=== PATIENT | female | born 1990 | race Caucasian/White ===

== ENCOUNTER 2023-06-09 14:36 | Outpatient (CLI) | payer BC, SELFPAY | END 2023-06-09 14:37 | disposition home or self-care (01) | LOC: NFLDREF 06-14 06:44 | PROVIDERS: Visit Provider Physician Assistant | DX: Z34.83 Encounter for supervision of other normal pregnancy, third trimester (principal) | CPT/HCPCS: 86592 ==

== ENCOUNTER 2023-06-13 17:45 | Outpatient (CLI) | payer BC, SELFPAY ==
[2023-06-13 17:55] VITALS: BP 109/64; PULSE 96
[2023-06-13 17:56] VITALS: PULSE 98; O2SAT 99
[2023-06-13 18:01] VITALS: PULSE 96; O2SAT 98
[2023-06-13 18:10] VITALS: RESP 16; TEMP 36.9
[2023-06-13 18:17] LABS: Appearance Urine Clear (Clear); Bilirubin Urine Negative (Negative); Blood Urine Negative (Negative); Color Urine Yellow (Yellow); Glucose Urine Negative (Negative); Ketones Urine Negative (Negative); Leukocyte Esterase Urine Trace (Negative); Nitrite Urine Negative (Negative); Protein Urine Negative (Negative); Specific Gravity Urine 1.015 (1.000-1.030); Urobilinogen Urine 0.2 (0.2-1.0)
[2023-06-13 18:39] LABS: Bacteria Urine Few; RBC Urine 0-2 (0-2); Squamous Epithelial Cell Urine Few (None-Few); WBC Urine 0-2 (0-5)
[2023-06-13 18:49] LABS: Clue Cells No Clue Cells Seen (None Seen); Trichomonas No Trichomonas Seen (None Seen); Yeast No Yeast Seen (None Seen)
[2023-06-13 19:19] LABS: Fetal Fibronectin* Negative (Negative)
--- NOTE | 2023-06-13 20:06 | PC.OBNST ---
NST Note NST Note Start: 06/13/23 17:49 Freq: ONCE Status: Active Protocol: Document 06/13/23 20:04 MIREILLE (Rec: 06/13/23 20:06 MIREILLE [id number]) NST Note 5 Para (# of births) 1 EDC 08/29/23 Gestational Age In Weeks & Days 29 Weeks & 0 Days Patient Presented with Complaint(s) of Contractions/cramping Reactive Yes Appropriate for Gestational Age Yes RAMESH Harley RN Date 06/13/23 Reactive Yes Appropriate for Gestational Age Yes RAMESH [place], RNC Date 06/13/23 OB NST charge Yes Complete NST Note via Write Note Yes The provider's electronic signature indicates the NST is reactive/appropriate for gestational age. *Note to provider: If an addendum is required, open the patient's chart and click on the note under the Nurse/Allied Health tab.
--- NOTE | 2023-06-13 20:20 | P.OBO_ITS ---
OB Outpatient HPI History of Present Illness History of Present Illness: 32 year old at 29 weeks gestation presents with chief complaint of contractions. She feels these more when active. She denies any loss of fluid and reports a little vaginal discharge. OB Problem List 1. AMA Carrier screening and MaterniT 21: neg Level 2 ultrasound: See below. 2. 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 History of Desires repeat, does not desire permanent sterilization 4. Marginal cord insertion Follow-up growth 3rd trimester: expect this will be done with repeat US at 34 weeks at [place], see below. 5. On follow-up anatomy ultrasound/additional cardiac findings noted : Foramen ovale flap appears aneurysmal without evidence of arrhythmia. Also ventricular size appears symmetric therefore is unlikely that there is significant flow obstruction from the aneurysmal foramen ovale. Considering marginal cord insertion and cardiac findings : Recommend follow-up ultrasound in the 3rd trimester for growth, reassessment of cardiac anatomy and foramen ovale. 05/11/23: Patient reports they did offer a echo and she would like to proceed. 06/03/23: s/p MFM consult, no echo recommended. Plan repeat US at 34 weeks, ordered at [facility]. 6. Asthma, mild intermittent. Exercise and URI induced. 7. GERD Omeprazole 20 mg 8. History of macrosomia,9 lb 7 oz Meds Home Medications and Allergies Home Medications Medication Instructions Recorded Confirmed Type calcium carbonate 200 mg calcium 200 mg PO BID 05/11/23 06/13/23 History (500 mg) chewable tablet (Tums) docosahexaenoic acid 200 mg 200 mg PO DAILY 05/11/23 06/13/23 History capsule ( DHA) omeprazole 20 mg capsule,delayed 20 mg PO QDAY 05/11/23 06/13/23 History release vits 75-iron 28 mg-folic 1 pkg PO DAILY 05/11/23 06/13/23 History acid 800 mcg-omega-3 oral combo pack (One A Day Women's DHA) Allergies Allergy/AdvReac Type Severity Reaction Status Date / Time No Known Drug Allergies Allergy Verified 06/13/23 18:48 [facility] Surgical History History of ?Z98.891 - History of uterine scar from previous surgery (ICD-10) Family History Sister Breast cancer, Onset Age: 29 Social History Narrative: 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 Marital status: . Gnosticist/cultural needs: no. Chemical or radiation exposure: no. Pre- tobacco use: no. Pre- alcohol use: no. Current tobacco use: no. Current alcohol use: no. Recreational drug use: no. Dietary restrictions: no. Blood transfusion acceptable in an emergency: yes. PSYCHOSOCIAL HISTORY: History of depression or currently depressed: no. Current or past physical, emotional, or sexual mistreatment: no. Problems that will make it hard to make it to appointments: no. What is your current living situation?: I presently have a place to live Problems where you live: no known problems In the past 12 months, utilities in danger of being shut off: no In past 12 months, lack of transportation kept you from medical appts, meetings, work, or getting things needed for daily living: no In the past 12 mos, have been you worried that your food would run out before you had money to buy more?: never true In the past 12 mos, the food you bought just didn't last and you didn't have money to buy more?: never true Smoking Status: Never smoker How often does anyone, including family, friends and others, physically hurt you : never How often does anyone, including family, friends and others, insult or talk down to you: never How often does anyone, including family, friends and others, threaten you with harm: never How often does anyone, including family, friends and others, scream or curse at you: never Little interest or pleasure in doing things: not at all Feeling down, depressed, or hopeless: not at all History History 5 Elective abortions Para 1 Spontaneous abortions 3 Hx # Term Pregnancies Ectopic pregnancies Hx # Pregnancies Multiple births Number of Living Children 1 Past Pregnancies Del. Date GA/Weeks Outcome Route wt Inf Gender Labor Lgth Anesthesia Location Provider Compli 12/14/18 8 spontaneous 03/12/21 40 live - full term low transverse 9 lb 7.043 oz Female 11h 15m epidural Al[facility] 11/17/21 5 spontaneous 10/14/22 11 spontaneous OB - H&P: Exam Physical Exam Vital signs: Temp Pulse Resp BP Pulse Ox 98.4 F 96 16 109/64 98 06/13/23 18:10 06/13/23 17:55 06/13/23 18:10 06/13/23 17:55 06/13/23 18:01 Narrative: Per RN, cervix closed and long tracing: Baseline 135 / accelerations to 180 / no decelerations / moderate variability Reactive and reassuring for gestational age; there are no contractions noted. Labs Labs Laboratory Tests 06/13/23 06/13/23 Range/Units 18:31 17:49 Urine Color Yellow (Yellow) Urine Appearance Clear (Clear) Urine pH 7.0 (5.0-8.5) Ur Specific [place] 1.015 (1.000-1.030) Urine Protein Negative (Negative) Urine Glucose (UA) Negative (Negative) Urine Ketones Negative (Negative) Urine Blood Negative (Negative) Urine Nitrite Negative (Negative) Urine Bilirubin Negative (Negative) Urine Urobilinogen 0.2 (0.2-1.0) Ur Leukocyte Esterase Trace A (Negative) Urine RBC 0-2 (0-2) Urine WBC 0-2 (0-5) Ur Squamous Epith Cells Few (None-Few) Urine Bacteria Few A (None) Vaginal Trichomonas No Trichomonas Seen (None Seen) Vaginal Yeast No Yeast Seen (None Seen) Vaginal Clue Cells No Clue Cells Seen (None Seen) Fibronectin Negative (Negative) Assessment and Plan Assessment and plan (1) contractions: Status: Acute Plan Contractions resolved prior to arrival on Center. Cervix long and closed. FFN negative. Not consistent with labor. Reassuring status. Will follow up on results of urine culture. Otherwise, discharge to home with plan to follow up in clinic for routine visit.
== END 2023-06-13 20:00 | disposition home or self-care (01) ==
LOC: OB OUT 17:46 → OB 17:47
PROVIDERS: Visit Provider Obstetrics & Gynecology
DX: O47.03 False labor before 37 completed weeks of gestation, third trimester (principal); Z3A.29 29 weeks gestation of pregnancy
CPT/HCPCS: 59025; 81001; 81003; 84112; 87086; 87210; G0463

== ENCOUNTER 2023-08-06 14:30 | Outpatient (CLI) | payer BC, SELFPAY ==
[2023-08-07 13:44] LABS: Strep B DNA Probe Negative (Negative)
[2023-08-07 13:54] LABS: Strep B Susceptibility Needed? No
== END 2023-08-06 14:31 | disposition home or self-care (01) ==
LOC: NFLDREF 14:58
PROVIDERS: Visit Provider Obstetrics & Gynecology
DX: O09.523 Supervision of elderly multigravida, third trimester (principal)
CPT/HCPCS: 87081; 87653

== ENCOUNTER 2023-08-12 11:39 | Inpatient (IN) | payer BC, SELFPAY ==
[2023-08-12] VITALS (24 sets, daily range): BP systolic 92–103; BP diastolic 53–76; PULSE 65–87; RESP 16–18; TEMP 36.3–36.9; O2SAT 96–99; BMI 35.1
--- NOTE | 2023-08-12 11:41 | PM.PROC ---
Procedure Note Time Seen by Provider: 13:39 Date Seen: 08/12/23 Date of procedure: 08/12/23 Will [facility] bill your pro fee for this procedure?: Yes Procedure: Preoperative diagnosis: 32-year-old 5 para 1031 at 37 and 4/7 weeks admitted for a repeat low transverse section due to early labor, planned . Postoperative diagnosis: Same Procedure: Repeat low-transverse section. Anesthesia: Spinal Surgeon: Britany Nazario MD Combatant Diver Qualified: Mary Farfan RN FA Quantitative blood loss: 939 mL IVF: 1100 mL UOP: 150 mL clear urine at end of procedure Drain(s): Hook to gravity. Specimen: None Findings: A live female infant was delivered from the direct OA position at 12:55 p.m.. Apgars were 8 at 1 min and 9 at 5 min, respectively. weight: Pending. Nuchal cord(s): No. The placenta was delivered spontaneously and complete at 12:57 p.m.. Amniotic fluid: Clear.. Normal uterus, normal left fallopian tube and left ovary. Other findings: Thick adhesion of the anterior abdominal wall to the right side of the mid uterus. This adhesion prevented visualization of the right ovary and fallopian tube. Procedure: Alba was taken to the OR where spinal anesthetic was found be adequate. A Hook catheter was placed. The patient was then placed in the dorsal supine position with a leftward tilt. She was then prepped and draped in a normal sterile manner. A Pfannenstiel skin incision was made and carried through sharply to the underlying layer of fascia. Fascia was incised in the midline and this incision carried laterally with Mariee scissors. The superior aspect of fascial incision was grasped with Shawnee clamps, tented up, and the rectus muscles dissected off with a combination of blunt and sharp dissection. The inferior aspect of the fascial incision was grasped with Shawnee clamps, tented up and again the rectus muscles dissected off with a combination of blunt and sharp dissection. The rectus muscles were in the midline. The peritoneum was entered bluntly. This opening was extended bluntly. An Sid-O self-retaining retractor was placed. A bladder flap was not created. Uterus was incised in a low transverse manner in the midline. This incision carried laterally with blunt pressure on the inferior and superior aspects of the uterine incision. The amniotic sac was ruptured. The 's body were delivered atraumatically. The was shown to the patient and her support person. The umbilical cord was clamped and cut after 30-60 second delay. The was then handed to waiting pediatric and nursing staff. The placenta was delivered spontaneously. The uterus was cleared of clots and debris. The uterine incision was re-approximated with the uterus in vivo. The 1st layer using 0-Vicryl in a running, locked manner. The 2nd layer using 0-Monocryl in a running, vertical, imbricating layer. Additional sutures needed for hemostasis: Yes, 1 figure of 8 suture using 2-0 chromic. Halle was applied to the uterine incision. Excellent hemostasis was confirmed. The Sid retractor was removed. The rectus muscles were not reapproximated. The rectus muscles were then closely inspected to verify hemostasis. Hemostasis was obtained with bipolar cautery. The fascia was then reapproximated using 0-Maxon loop in a running manner. The subcutaneous tissue was then irrigated with saline and hemostasis obtained with bipolar cautery. The subcutaneous tissue was reapproximated using 3-0 plain gut in a running manner. The skin was reapproximated using 4-0 Monocryl in a running subcuticular manner. Exophin skin adhesive and a Mepiplex dressing were applied. The patient tolerated this procedure well. Sponge, lap and instrument counts were correct x2 active to the procedure. Patient was taken to the recovery area in stable condition. The patient received 2 g of IV Ancef and 500 mg IV azithromycin prior to skin incision.
[2023-08-12 12:13] LABS: Hemoglobin* 11.9 gm/dL (12.0-16.0)
[2023-08-12] MEDS: AZITHROMYCIN 500 MG in 0.9 % SODIUM CHLORIDE 250 ml 250 ML 255 MG IVPB (13:32)
[2023-08-12] MEDS: CEFAZOLIN 2 GM INJ IVP (13:33)
[2023-08-12] MEDS: KETOROLAC 30 MG/ML inj IVP ×2 (13:33→20:43)
--- NOTE | 2023-08-12 14:10 | P.ANES_ITS ---
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
--- NOTE | 2023-08-12 14:11 | W.PM.NB ---
Nerve Block Nerve Block Time Seen by Provider: 13:45 Date Seen: 08/12/23 Type of block requested by surgeon for post-operative analgesia: TAP Side: bilateral Time out performed: Yes Verification of patient name: Yes Verification of date of : Yes Site marking: site marked Name of person performing procedure: Iain Sofya Continuous monitoring Was continuous monitoring of O2 sat, B/P, precipitation equipment tender, recorded every 15 minutes?: Yes Procedure Checklist: sterile prep, needles and gloves Ultrasound guided. Images saved: Yes Medications given in 5ml increments after negative aspiration: Marcaine %: 0.25 mL: 30 Needle gauge: 21 and Exparel mL: 10 Needle gauge: 21 Patient tolerated procedure well: Yes Additional comments: Injected in 5mL increments after negative aspiration Block Charges Block Charge (with Pro Fee): TAP Bilateral Use of Ultrasound Machine for Block: Yes- US Guidance/pain block
[2023-08-12] MEDS: LACTATED RINGERS 1000 ML 1,000 ML 125 ML IV (14:32)
--- NOTE | 2023-08-12 14:48 | W.ANESCHARGE ---
Anesthesia Charges Start Date/Time Anesthesia Start Date: 08/12/23 Anesthesia Start Time: 12:22 Stop Date/Time Anesthesia Stop Date: 08/12/23 Anesthesia Stop Time: 13:51
[2023-08-12] MEDS: ACETAMINOPHEN 500 MG TABLET 1000 MG PO (17:08)
[2023-08-13] VITALS (11 sets, daily range): BP systolic 95–100; BP diastolic 62–65; PULSE 69–88; RESP 16–20; TEMP 36.4–37.1; O2SAT 95–98
[2023-08-13] MEDS: ACETAMINOPHEN 500 MG TABLET 1000 MG PO ×3 (00:23→14:04)
[2023-08-13] MEDS: KETOROLAC 30 MG/ML inj IVP ×4 (02:44→20:05)
[2023-08-13 06:43] LABS: Hemoglobin* 10.8 gm/dL (12.0-16.0)
[2023-08-13] MEDS: SODIUM CHLORIDE 0.9 % (FLUSH) 10 ML SYRINGE IVF ×2 (08:40→14:25)
--- NOTE | 2023-08-13 09:27 | PM.OBPNVD1 ---
Documented by User: Kellie Mitchell CNM 08/13/23 10:04 OB - PN:Subj Subjective Date Seen: 08/13/23 Patient comments OB post-: tolerating diet (Not yet eating regularly, plans to today.), flatus present and other (Pain controlled with increased incisional burning today. Has not yet been out of bed and is overdue for tylenol. Also using toradol.) status: (Baby is receiving care. Ali is pumping often to initiate supply. No nipple pain as of yet. ) [place] feeding status: exclusively (but baby is supplementing due to medical indications. ) OB - PN: Obj Exam Physical Exam: Vital signs: Temp Pulse Resp BP Pulse Ox O2 Del Method 97.9 F 69 16 96/62 98 Room Air 08/13/23 03:23 08/13/23 03:23 08/13/23 03:23 08/13/23 03:23 08/13/23 03:23 08/13/23 03:23 Narrative: GENERAL APPEARANCE:? normal affect, alert, no distress MOOD:? appropriate ABDOMEN:? soft, with mild tenderness to palpation. The uterine fundus is At Umbilicus, Midline and is appropriate for the stage of recovery. EXTREMITIES:? normal and minimal edema Incision: Surgical dressing in place appearing clean and dry Urinary Catheter Management: Urethral: Cath placed during this visit: yes, but has since been removed by the nurse Reason for continuing: decision to DC catheter Insertion date: 08/12/23 Insertion time: 12:44 Removal date: 08/13/23 Removal time: 07:30 OB - PN: Obj Data Labs Labs: Laboratory Results - last 24 hr 08/12/23 08/13/23 12:05 05:55 Hgb 11.9 L 10.8 L Blood Type A Positive Antibody Screen NEGATIVE OB - PN: A/P Delivery Assessment and Plan (1) Status post repeat low transverse section: Status: Acute Plan Plan: routine care Comments: Anticipate discharge possibly tomorrow afternoon Encourage ambulation, pumping, routine cares with support for baby Documented by User: Kaela Arvizu CNM 08/13/23 18:38 OB - PN:Subj Subjective Narrative: Alba is a 32 y.o. G 5 P 2 who was admitted to [facility] for spontaneous onset of labor. ?She had a repeat section that was uncomplicated. The patient feels well. ?The pain is well controlled with current medications. ?She has no new complaints. ?She is breast feeding but has mainly been pumping due to concerns with breathing. the patient has done well.? Vitals have been stable.? She has remained afebrile.? Has a good appetite, is tolerating a general diet. ?She is voiding without difficulty.? She is passing gas and has not had a bowel movement.? She is ambulating and denies any dizziness.? Has small amount of rubra lochia. Problems: none OB - PN: Obj Exam Urinary Catheter Management: Urethral: Cath placed during this visit: yes, but has since been removed by the nurse OB - PN: A/P Delivery Assessment and Plan (1) Status post repeat low transverse section: Status: Acute Plan day: 1 Comments: Routine postop care Anticipate discharge possibly tomorrow afternoon Encourage ambulation, pumping, routine cares with support for baby
[2023-08-13] MEDS: DOCUSATE SODIUM 100 MG CAPSULE PO (10:46)
[2023-08-14 00:23] VITALS: BP 101/59; PULSE 78; RESP 18; TEMP 36.9; O2SAT 98
[2023-08-14] MEDS: ACETAMINOPHEN 500 MG TABLET 1000 MG PO ×2 (00:27→08:19)
[2023-08-14 00:54] LABS: Rapid Plasma Reagin (RPR) Non Reactive (Non Reactive)
[2023-08-14] MEDS: IBUPROFEN 600 MG TABLET PO ×2 (04:02→10:13)
[2023-08-14 08:12] VITALS: BP 108/74; PULSE 77; RESP 16; TEMP 36.7; O2SAT 98
[2023-08-14] MEDS: DOCUSATE SODIUM 100 MG CAPSULE PO (08:54)
--- NOTE | 2023-08-14 10:44 | P.DS_ITS ---
DS: Providers Provider Time Seen by Provider: 10:45 Date Seen: 08/14/23 Date of admission: 08/12/23 11:39 Primary care physician: Not a Local Provider Admitting Clinician: Britany Nazario MD Attending Physician on discharge: Romy La MD Exam Narrative: Exam Narrative: VS reviewed and are within normal limits. General: Alert and oriented, in no acute distress Psych: Appropriate mood and affect Abdomen: Soft, mild gaseous distension in the upper abdomen. Tenderness to palpation in the bilateral lower quadrants, consistent with post-op state. No rebound or guarding. Back: Tender to palpation at the mid-back. No lower back pain or radiation to extremities. Extremities: 1+ pitting edema bilaterally. Calves are non-tender, no erythema or unequal swelling. Const: Vital Signs, click to edit/add: Vital Signs - 24 hr 08/13/23 11:24 08/13/23 11:25 08/13/23 15:39 Temperature 97.9 F 97.9 F Pulse Rate [Pulse Oximeter] 83 88 Respiratory Rate 16 16 20 Blood Pressure [Le ft Arm] 95/64 98/65 Pulse Oximetry 97 95 Oxygen Delivery Me thod Room Air Room Air 08/14/23 00:23 08/14/23 08:12 Temperature 98.4 F 98.0 F Pulse Rate [Pulse Oximeter] 78 77 Respiratory Rate 18 16 Blood Pressure [Le ft Arm] 101/59 L 108/74 Pulse Oximetry 98 98 Oxygen Delivery Me thod Room Air Room Air OB - DS: Summary Hospital Course Hospital Course: The patient is a 32 year old G 5 P 2 at 37 weeks gestation that was admitted to the Center on 08/12/23 for spontaneous onset of labor. She had an uncomplicated repeat delivery. She delivered a viable female infant, subsequently transferred for NICU cares. She is pumping and bottle feeding at this time. the patient has done well. Alba notes her pain is well controlled on ibuprofen and tylenol, has not taken any oxycodone. Her pain has increased somewhat today, attributed to wearing off of TAP blocks. She additionally has some soreness and tenderness of the midback. Notes intermittent gaseous distension, but is passing gas regularly and had BMx1. Ambulates without dizziness/lightheadedness. No chest pain or dyspnea. Tolerating PO intake without nausea/vomiting. Voids spontaneously without issue. Lochia is minimal. POD1 Hgb was 10.8. Peripartum Data Infant delivery method: Repeat Section Procedures: Procedures Operation Date: 08/12/23 12:15 Actual Procedure Side Surgeon p Repeat Section Not Applicable Britany Nazario MD [place] Gender: Female Time Spent with Patient Time attestation: Total time spent providing and/or coordinating discharge services: Discharge Plan Discharge Disposition: Home, Self-Care Date of Admission: 08/12/23 11:39 Primary Care Provider: Provider,Not a Local Condition: Stable Anticipated Discharge Date/Time: 08/14/23 10:56 Discharge Medications: New oxycodone 5 mg Tablet 5 mg PO Q6H PRN (Reason: Pain) Qty: 5 0RF Continued DHA 200 mg capsule 200 mg PO DAILY One A Day Women's DHA 28 mg iron- 800 mcg combo pack 1 pkg PO DAILY calcium carbonate [Tums] 200 mg calcium (500 mg) tablet,chewable 200 mg PO BID omeprazole 40 mg capsule,delayed release(DR/EC) 40 mg PO QDAY Qty: 90 3RF ferrous sulfate 325 mg (65 mg iron) tablet 325 mg PO Q OTHER DAY Discharge Orders: Discharge Order (Routine); Ordered 08/14/23 Ordered By: Elli La Additional Instructions: Discharge instructions were reviewed with the patient including signs and symptoms of infection and home going medications Lifting Restrictions: 20 pounds for 6 weeks No not submerge incision under water X 2 weeks? Nothing vaginally for 6 weeks: no tampons or intercourse Do not drive while taking narcotic pain medication(s) Off Work or School for 8 weeks Symptoms to report to doctor: * Bleeding that saturates more than one pad per hour * Passing clots larger than the size of a golf ball * Pain not relieved by prescribed medication * Fever above 100.4 degrees Fahrenheit * A foul vaginal odor * Difficulty in emotions, mood, and functions * Thoughts of hurting yourself and/or * Painful, reddened area in your breast * Any drainage, redness, or tenderness in your IV/epidural site * Severe headache that doesn't improve after taking medications * Changes in vision, including temporary loss of vision, blurred vision, and/or light sensitivity * Upper abdominal pain (usually under ribs on the right side) * Decrease in urination or painful, frequent urinating * Chest pain * Shortness of breath * Tenderness or pain with redness and/swelling in the calf(s) of your leg Optional 2-week visit: incision check, discuss infant feeding concerns, review control options and screen for anxiety/depression. 6-week visit for an annual exam. consultation services are available to all mothers and babies for the first year after delivery.? To make an appointment, please call [phone]. Follow Up Appointments: Provider,Not a Local [Primary Care Provider] - Forms: [employer] Info Instructions
--- NOTE | 2023-08-19 09:06 | W.PM.LDBA ---
Subjective History of Present Illness Time Seen by Provider: 08:20 Date Seen: 08/16/23 Narrative: Patient is being admitted to Labor and Delivery for spontaneous rupture membranes and spontaneous onset of labor. She is a 32 year old at 37 and 4/7 weeks gestation. Her full history and physical was dictated by Dr. Engle on 08/06/2023. Please see this for details. Specific Issues/Plans 1. AMA Carrier screening and MaterniT 21: neg Level 2 ultrasound: See below. 2. 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 History of Desires repeat, does not desire permanent sterilization 4. Marginal cord insertion Follow-up growth 3rd trimester: expect this will be done with repeat US at 34 weeks at [facility], see below. MFM did not mention marginal cord, did not make recommendation for follow-up growth ultrasound 5. On follow-up anatomy ultrasound/additional cardiac findings noted : Foramen ovale flap appears aneurysmal without evidence of arrhythmia. Also ventricular size appears symmetric therefore is unlikely that there is significant flow obstruction from the aneurysmal foramen ovale. Considering marginal cord insertion and cardiac findings : Recommend follow-up ultrasound in the 3rd trimester for growth, reassessment of cardiac anatomy and foramen ovale. 05/11/23: Patient reports they did offer a echo and she would like to proceed. 06/03/23: s/p MFM consult, no echo recommended. Plan repeat US at 34 weeks, ordered at [facility]. 07/16/23: Atrial septal aneurysm. No evidence of cardiac compromise or signs of obstruction. Most likely self limited. Can deliver locally. See chart note, discussed with Dr. Presley per patient request: For now he feels she can deliver here. Discussed with patient need for transfer if heart problems are noted after delivery. 6. Asthma, mild intermittent. Exercise and URI induced. 7. GERD Omeprazole 20 mg 8. History of macrosomia,9 lb 7 oz 9. mild anemia, 10.9 at 33 weeks iron supplementation labs 02/02/2023: A positive, negative antibody screen, hemoglobin 13.9, platelets 199, rubella immune, RPR nonreactive, hepatitis-B surface antigen nonreactive, HIV negative, gonorrhea and Chlamydia negative, hep C negative 24-28 week labs 04/26/2023: 1 hour GTT 91, hemoglobin 12.3 Imagin. 01/07/2023: Gestational sac and yolk sac. No pole 2. 01/19/2023: [place]-rump length 18.3 mm. ARVIND 08/29/2023 3. 02/02/2023:, length 32.8 mm. heart rate 173. ARVIND 08/30/2023 4. 04/08/2023 MFM :Suboptimal views of the spine, otherwise normal anatomy. Posterior placenta, no previa. Marginal cord insertion. EFW 46.9% 5. 04/27/2023 MFM: Images of spine obtained and normal. Marginal cord insertion. Foramen ovale flap appears aneurysmal without evidence of arrhythmia. Also ventricular size appears symmetric therefore is unlikely that there is significant flow obstruction from the aneurysmal foramen ovale. Considering marginal cord insertion and a cardiac findings today. Perinatology recommended follow-up ultrasound in the 3rd trimester for growth, reassessment of cardiac anatomy and foramen ovale 6. 06/03/23: EFW 1026g, 22%ile. Aneurysmal atrial septum, no other cardiac concerns. H&P: Dr. Engle on 08/06/23 OB - Problem Based A/P Additional Plan (1) History of : Problem details: Macrosomia and arrest of descent Status: Acute Plan 1. Spontaneous rupture of membranes and spontaneous onset of labor at 37 weeks 4 days gestation planned repeat . 2. Consent form for repeat low-transverse was reviewed and signed. OB Exam Physical Exam Vital signs: Temp Pulse Resp BP Pulse Ox O2 Del Method 98.0 F 77 16 108/74 98 Room Air 08/14/23 08:12 08/14/23 08:12 08/14/23 08:12 08/14/23 08:12 08/14/23 08:12 08/14/23 08:12 Narrative: GENERAL APPEARANCE: Pleasant, [race], well-groomed woman in no acute distress. VITAL SIGNS: as noted in nursing notes HEAD: Normocephalic, atraumatic. THYROID: no masses, nodularity, tenderness or enlargement. LUNGS: Clear to auscultation bilaterally without wheezes, rales or rhonchi. HEART: Regular rate and rhythm with normal S1 and S2. No gallop, rub or murmur. ABDOMEN: Gravid. Soft, tender during contractions, nondistended, with normal bowels sounds throughout. EFM: Baseline 130s, accelerations present, decelerations absent, reactive, category 1. PRESENTATION: Vertex by Mohit's maneuvers. SVE per nursin cm/75%/-1 EXTREMITIES: No cyanosis, clubbing, or edema. No varicosities. NEUROLOGIC: Normal gait and balance. Normal deep tendon reflexes at bilateral patella 2+/2, equal without clonus. PSYCHIATRIC: alert and oriented x3. Normal speech pattern, eye contact and affect. SKIN: Warm, dry, and well perfused. Good turgor. No lesions, nodules or rashes.
== END 2023-08-14 13:23 | disposition home or self-care (01) | DRG 540 ==
LOC: OB OUT 11:39 → OB 11:39
PROVIDERS: Admitting Provider Obstetrics & Gynecology; Visit Provider Obstetrics & Gynecology
PROC: 10D00Z1 Extraction of Products of Conception, Low, Open Approach (ICD-10-PCS; CPT 59514; principal; 2023-08-12 12:00)
DX: O34.211 Maternal care for low transverse scar from previous cesarean delivery (principal); O75.82 Onset (spontaneous) of labor after 37 completed weeks of gestation but before 39 completed weeks gestation, with delivery by (planned) cesarean section; G89.18 Other acute postprocedural pain; N96 Recurrent pregnancy loss; O75.89 Other specified complications of labor and delivery; R12 Heartburn; Z3A.37 37 weeks gestation of pregnancy; Z37.0 Single live birth; O99.013 Anemia complicating pregnancy, third trimester; D64.9 Anemia, unspecified
CPT/HCPCS: 01961; 36415; 64488; 76942; 85018; 86592; 86850; 86900; 86901; 99100; A9270; C9290; J0456; J0665; J0690; J1100; J1885; J2274; J2371; J2405; J2590; J7050; J7120

== ENCOUNTER 2023-09-15 08:32 | Outpatient (CLI) | payer BC, SELFPAY ==
--- OUTSIDE RECORDS SUMMARY | 2023-09-15 08:36 | XMS_ITS | Clinical Summary ---
Author Organization [facility] Address [address] [place] [address] Care Team Providers Care Fiberglass Container Winding Operator Name Role Phone Enrique Walters M.D. Primary Care Provider [phone] Source Comments Patient records contain information from all sites at [facility]. For routine questions regarding patient records, call [phone] during business hours, M-F 8:00 AM - 5:00 PM Central Time. Record requests for emergency care only can be directed to [phone] at any time.[facility] Allergies Active Allergy Reactions Criticality Noted Date Comments Animal Dander Other (see comments) 11/10/2018 hives House Dust Mite Other (see comments) 11/10/2018 Stuffy nose Mold Other (see comments) 11/10/2018 Stuffy nose Pollen Extracts Other (see comments) 11/10/2018 Stuffy nose Medications Medication Sig Dispensed Refills Start Date End Date Status albuterol 90 mcg/actuation inhaler Inhale 2 puffs every 4 (four) hours as needed for wheezing or shortness of breath. 18 g 3 07/17/2022 Active fluticasone propionate (FLOVENT DISKUS) 100 mcg/actuation diskus inhalerIndications: Asthma Exercise Induced Bronchospasm (HCC) Inhale 1 puff 2 (two) times a day. Rinse mouth with water after use to reduce aftertaste and incidence of candidiasis. Do not swallow. 60 each 11 07/30/2022 Active Additional Information Patient not taking.Reported on 06/19/2023 vitamin-iron fumarate-FA 28 mg iron- 800 mcg per tablet Take 1 tablet by mouth daily. Active omega 9-isd-qsr-fish oil 1,000 mg (120 mg-180 mg) capsule Take by mouth. Ac tive omeprazole (PriLOSEC) [address] capsuleIndications: Gastroesophageal Reflux Disease Without Esophagitis Take 1 capsule (20 mg total) by mouth daily. 90 capsule 3 04/08/2023 Active calcium carbonate (Tums) 500 mg (200 mg calcium) chewable tablet Chew 200 mg. 05/11/2023 Active ferrous sulfate 325 mg (65 mg iron) tablet Take 325 mg by mouth every other day. Active Active Problems Problem Noted Date Diagnosed Date Multigravida Advanced Matern al Age Affecting Management 02/02/2023 Overview: Will be 33 at due date Carrier screening & NIPS normal Recurrent Loss First Trimester 023 Overview: Spontaneous 1st trimester loss x3 Trisomy 13 on products of conception from 3rd loss Potential karyotypes have been normal Antiphospholipid antibody syndrome screening negative Using vaginal progesterone in 1st trimester this History Of Uterine Scar From Previous Surgery Overview: History of prior Desires repeat This will be her last , discuss possible sterilization further later in . 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 Cancer Breast Family History 05/13/2018 Adjustment Disorder With Anxious Mood Estimated Date of Delivery Comme nts Yes 08/29/2023 Based on Ultraso und Resolved Problems Problem Noted Date Diagnosed Date Resolved Date COVID-19 Infection 01/09/2021 Care And Lactating 06/03/2020 05/19/2022 39 Weeks Gestation 05/16/2020 06/03/2020 Examination Normal First Third Trimester 03/19/2020 06/03/2020 Single Umbilical Artery 02/19/202005/07 Pain Right Lower Quadrant 02/13/2020 20 Weeks Gestation 12/26/2019 03/19/2020 Headache Unspecified 11/20/2019 023 22 Weeks Gestation 03/19/2020 Encounters Date Type Department Care Team Description 07/16/2023 4:00 PM CDT Routine Department of Obstetrics and Gynecology in [place], [place] [address] [place] [address] Sangeeta Ivy M.B.B.S. Maternal Care For Other Suspected Abnormality And Damage Cardiac Anomalies Single Gestation (HCC) (Primary Dx) 07/16/2023 2:29 PM CDT - 07/16/2023 11:59 PM CDT Hospital Encounter Department of Obstetrics and Gynecology in [place], [place] [address] [place] [address] Sangeeta Ivy M.B.B.S. Abnormal Ultrasound Discharge Disposition: Home or Self Care 06/19/2023 10:00 AM CDT Office Visit Urgent Care, [facility], in [place], [place] [address] [place] [address] Azalia Harry APRN, C.N.P., D.N.P. Cough Acute (Primary Dx); Gastroesophageal Reflux Disease Without Esophagitis Discharge Disposition: Home or Self Care from Last 3 Months Immunizations Name Administration Dates Next Due Tdap 02/19/2020,10/03/2018 influenza vaccine quad (FLUZONE/FLUARIX) (6 months and older)(PF) 12/29/2021,03/20/2021,12/26/2019, 019,12/06/2017,12/21/2016 Family History Medical History Relation Name Comments No Known Problems Father Arthritis Maternal Grandmother Evangaline Bosquette Depression Mother Carla Moore Sleep apnea Mother Carla Moore Lung cancer Mother's Brother 1 Smoker Mother's Brother 1 Alcohol abuse Mother's Brother 2 Nando Bosquette Lung cancer Mother's Brother 2 Nando Bosquette Breast cancer Other 2 Grandmap Sister Colon cancer Other 2 Grandmap Sister Liver cancer Other 2 Grandmap Sister Alcohol abuse Paternal Grandfather Osvaldo Moore Hyperlipidemia Paternal Grandfather Osvaldo Moore Hypertension Paternal Grandfather Osvaldo Landakowski Stroke Paternal Grandfather Osvaldo Oscar Alcohol abuse Paternal Grandmother Maranda Oscar Dementia Paternal Grandmother Maranda Oscar Asthma Sister Breast cancer Sister Twin sister. Relation Name Status Comments Father Alive Maternal Grandmother Jun Serrano Mother Carla Moore Alive Mother's Brother 1 Mother's Brother 2 Nando Serrano Other 1 Grandpa Sister Other 2 Grandmap Sister Paternal Grandfather Osvaldo [place] Paternal Grandmother Maranda Moore Sister Alive Social History Tobacco Use Types Packs/Day Years Used Date Smoking Tobacco: Never Smokeless Tobacco: Never Tobacco Cessation:Counseling Given: Yes Alcohol Use Standard Drinks/Week Comments Yes 7 (1 standard drink = 0.6 oz pur e alcohol) occas [facility] SimScaleities Answer Date Recorded In the past 12 months has e 1-[employer], gas, oil, or water [employer] threatened to shut off services in your home? No 05/31/2023 Humiliation, Afraid, Rape, and Kick questionnair e Answer Date Recorded Within the last year, have y ou been afraid of your partner or ex-partner? No 05/18/2022 Within the last year, have y ou been humiliated or emotionally abused in other ways by your partner or ex-partner? No Within the last year, have y ou been kicked, hit, slapped, or otherwise physically hurt by your partner or ex-partner? No 05/18/2022 Within the last year, have y ou been raped or forced to have any kind of sexual activity by your partner or ex-partner? No 05/18/2022 Social Connection and Isolat ion Panel [NHANES] Answer Date Recorded In a typical week, how many times do you talk on the phone with family, friends, or neighbors? More than three times a week 05/18/2022 How often do you get togethe r with friends or relatives? Once a week 05/18/2022 How often do you attend chur ch or spiritism services? Never 05/18/2022 Do you belong to any clubs o r organizations such as buddhist groups, unions, fraternal or athletic groups, or school groups? No 05/18/2022 How often do you attend meet ings of the clubs or organizations you belong to? Patient declined 05/18/2022 Are you , , di vorced, , never , or living with a partner? 05/18/2022 AUDIT-C Answer Date Recorded Q1: How often do you have a drink containing alc ohol? 2-3 times a week 05/18/2022 Q2: How many drinks containi ng alcohol do you have on a typical day when you are drinking? 1 or 2 05/18/2022 Q3: How often do you have si x or more drinks on one occasion? Less than monthly 05/18/2022 Overall Financial Resource Strain (CARDIA) Answe r Date Recorded How hard is it for you to pa y for the very basics like food, housing, medical care, and heating? Not very hard 05/18/2022 PHQ-2 Answer Date Recorded PHQ-2 Score 0 02/02/2023 [facility] - Occupational Stress Questionnaire Answer Date Recorded Do you feel stress - tense, restless, nervous, or anxious, or unable to sleep at night because your mind is troubled all the time - these days? Only a little 05/18/2022 Exercise Vital Sign Answer Date Recorde d On average, how many days pe r week do you engage in moderate to strenuous exercise (like a brisk walk)? 0 days 05/31/2023 On average, how many minutes do you engage in exercise at this level? 0 min 05/31/2023 Hunger Vital Sign Answer Date Recorded Within the past 12 months, y ou worried that your food would run out before you got the money to buy more. Never true 05/31/19 24 Within the past 12 months, t he food you bought just didn't last and you didn't have money to get more. Never true 05/31/2023 PRAPARE - Transportation Answer Date Re corded In the past 12 months, has l ack of transportation kept you from medical appointments or from getting medications? No 05/07 In the past 12 months, has l ack of transportation kept you from meetings, work, or from getting things needed for daily living? No 05/31/2023 Depression Answer Date Recor ded PHQ-9 Total Score (max 27) 1 02/02 Nutrition Answer Date Recorded Nutrition: EVOO Fat Source Yes 05/30 On average, how many serving s of fruits and vegetables do you eat per day (serving size is equal to 1 cup or approximately the size of a tennis ball)? 3-5 05/31/2023 Dental Answer Date Recorded Dental: Regular Dentist Yes 04/28/19 Employment Answer Date Recorded Employment status Employed and actively working without restrictions 05/31/2023 Housing Stability Answer Date Recorded What is your living situation today? I have a [facility] place to live 05/31/2023 Education Answer Date Recorded What is the highest level of school you have completed or the highest degree you have received? 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, [employer]) 06/30/2020 Estimated Date of Delivery Comme nts Yes 08/29/2023 Based on Ultraso und Sex and Gender Information Value Date Recorded Sex Assigned at Female 04/29/2017 4:15 PM CEREAL SUPERVISOR Gender Identity Female 04/29/2017 4:15 PM CEREAL SUPERVISOR Sexual Orientation Straight 04/29/2017 4: 15 PM CEREAL SUPERVISOR Last Filed Vital Signs Vital Sign Reading Time Taken Comments Blood Pressure 100/69 07/16/2023 3:43 PM CDT Pulse 99 07/16/2023 3:43 PM CDT Temperature 36.5 ??C (97.7 ??F) 07/16/2023 3:43 PM CD T Respiratory Rate 20 06/19/2023 9:22 AM CDT Oxygen Saturation 97% 07/16/2023 3:43 PM CDT Inhaled Oxygen Concentration - - Weight 92.4 kg (203 lb 11.3 oz) 07/16/2023 3:43 PM CDT Height 166 cm (5' 5.35) 06/19/2023 9:22 AM CDT Body Mass Index 33.53 06/19/2023 9:22 AM CDT Plan of Treatment Health Maintenance Due Date Last Done Comments Lipid (Cholesterol) Screening 1990 Pneumococcal vaccine (0-64 years) (1 of 2 - PCV) 1994 Hepatitis B Vaccines (1 of 3 - 19+ 3-dose series) 08/26/2007 COVID-19 Vaccine ( - season) 2022 04/11/2021, 07/12/2020, 06/12/2020 Depression Screening (Annual PHQ-2) 03/08/2023 Influenza Vaccine (#1) 2023 , 03/20/2021, 12/26/2019, Additional history exists Asthma Management/Exacerbation Questionnaire (AMQ/AEQ) 03/09/2024 03/09/2023 Asthma Action Plan 03/15/2024 03/15/2023, 10/31/2021 Asthma Control Test Questionnaire 04/10/2024 04/10/2023, 03/09/2023 Cervical Cancer Screening 07/04/20252020, 07/04/2020, 04/29/2017 DTaP,Tdap,and Td Vaccines (4 - Td or Tdap) 06/21/2033 06/22/2023, 02/19/2020, 10/03/2018 HIV Screening Completed 02/02/2023, 09/06, 12/06/2018 Hepatitis C Screening Completed 02/02/2023 HPV Vaccines Aged Out No longer eligi ble based on patient's age to complete this topic RSV vaccine - (32-36 weeks) or 60+ years (No Doses Required) Completed Procedures Procedure Name Priority Date/Time Associated Diagnosis Comments US OB FOLLOW-UP AND OR GROWTH PARK RAD - Routine (most inpatients and all outpatients) 07/16/2023 3:02 PM CDT Abnormal Ultrasound HCV AB SCRN W/REFLEX TO HCV PCR, S Routine 02/02/2023 4:13 PM CEREAL SUPERVISOR Multigravida Advanced Maternal Age Affecting Management (HCC) HIV-1/-2 AG AND AB SCRN, PLASMA Routine 02/02/2023 4:13 PM CEREAL SUPERVISOR Multigravida Advanced Maternal Age Affecting Management (HCC) THINPREP W/HPV CO-TEST SCREEN Routine 07/04/2020 4:45 PM CDT Care (HCC) from Last 3 Months or Most Recently Relevant to Health Maintenance Results * US OB Follow-up and or Growth Park (07/16/2023 3:02 PM CDT) Anatomical Region Laterality Modality Body, Ultrasound OB RST LOS, Ultrasound ARZ LOS N/A Ultrasound Narrative 07/16/2023 3:08 PM CDT ALBA CLAUDIO OB Exam, 07/16/2023 EXAM INFORMATION Patient Name: ??ALBA CLAUDIO : ??1990 Age: ??32 yrs Sex: ??Female Ref Phys: ??SANGEETA IVY Exam Date: 07/16/2023 Procedure: US OB FOLLOW-UP AND OR GROWTH PARK Exam Site: [facility] OB #3 Plurality: 1 OBHx: [G:(5)] ?F Trm:() Pre:() C-Sec:() Ab-I:() Ab-S:() Ect:() Multi:() Sherri:(1) INDICATIONS FOR SONOGRAPHY aneurysmal foramen ovale IMPRESSION Transabdominal ultrasound was performed for growth Park in Cephalic presentation. Composite biometry consistent with gestational age. EFW is 2302 grams at the 49% for gestational age. aneurysmal foramen ovale, normal heart rate and rhythm. MEASUREMENTS ??ramone ??wks [+/-] (Range) % ?? BPD: 8.22 cm ?? 33w0d ??[+/-3.08] ??(7.81 - 8.99) 27% FL: ??6.41 cm ?? 33w1d ??[+/-2.96] ??(6.03 - 7.21) 24% HC: ??31.08 cm ?? 34w5d ??[+/-2.98] ??(29.39 - 33.31) 39% AC: ??30.46 cm ?? 34w3d ??[+/-2.96] ??(27.01 - 32.26) 73% RATIOS ??(Range) % ?? HC/AC: 1.02 ?(0.96 - 1.11) 39% ?? FL/BPD: 0.78 ? FL/AC: 0.21 ? COMPUTATIONS GA: ?? 33w5d [+/-2.44] Method: ??ARVIND ARVIND: ??08/29/2023 Sono GA: ??33w3d [+/-2.44] Method: ?? BPD, HC, AC, FL Weight: ??2302 gms. ??5 lb 1 oz. ??49% Method: ??BPD, HC, AC, FL OBSERVATIONS Amniotic Fluid Fluid Volume: ??Normal MVP: ??7.08 cm Placenta: ??Placenta is Posterior. ??There is no evidence of a placenta previa. Presentation: ?Cephalic Size: ?Normal for dates Growth: ??Within normal limits. FHR: ??136 bpm ANATOMY Normal: Stomach, Kidneys, Bladder COMMENTS Preliminary Read by Gallo Martinez on 07/16/2023 3:02:15 PM. Java Web Developer: ??Gallo Martinez Thank You For This Referral Procedure Note Muna Rivero M.D. - 07/16/2023 WILFRED ALBA LEARY OB Exam, 07/16/2023 EXAM INFORMATION Patient Name: ALBA CLAUDIO : 1990 Age: 32 yrs Sex: Female Ref Phys: SANGEETA IVY Exam Date: 07/16/2023 Procedure: US OB FOLLOW-UP AND OR GROWTH PARK Exam Site: [facility] OB #3 Plurality: 1 OBHx: [G:(5)] F Trm:() Pre:() C-Sec:() Ab-I:() Ab-S:() Ect:() Multi:() Sherri:(1) INDICATIONS FOR SONOGRAPHY aneurysmal foramen ovale IMPRESSION Transabdominal ultrasound was performed for growth Park in Cephalic presentation. Composite biometry consistent with gestational age. EFW is 2302 grams atthe 49% for gestational age. aneurysmal foramen ovale, normal heart rate and rhythm. MEASUREMENTS ramone wks [+/-] (Range) % BPD: 8.22 cm 33w0d [+/-3.08] (7.81 - 8.99) 27% FL: 6.41 cm 33w1d [+/-2.96] (6.03 - 7.21) 24% HC: 31.08 cm 34w5d [+/-2.98] (29.39 - 33.31) 39% AC: 30.46 cm 34w3d [+/-2.96] (27.01 - 32.26) 73% RATIOS (Range) % HC/AC: 1.02 (0.96 - 1.11) 39% FL/BPD: 0.78 FL/AC: 0.21 COMPUTATIONS GA: 33w5d [+/-2.44] Method: ARVIND ARVIND: 08/29/2023 Sono GA: 33w3d [+/-2.44] Method: BPD, HC, AC, FL Weight: 2302 gms. 5 lb 1 oz. 49% Method: BPD, HC, AC, FL OBSERVATIONS Amniotic Fluid Fluid Volume: Normal MVP: 7.08 cm Placenta: Placenta is Posterior. There is no evidence of a placentaprevia. Presentation: Cephalic Size: Normal for dates Growth: Within normal limits. FHR: 136 bpm ANATOMY Normal: Stomach, Kidneys, Bladder COMMENTS Preliminary Read by Gallo Martinez on 07/16/2023 3:02:15 PM. Java Web Developer: Gallo Martinez Thank You For This Referral Sangeeta TURNER OB US PROCEDUR ES * HIV-1/-2 Ag and Ab Scrn, Plasma (02/02/2023 4:13 PM CEREAL SUPERVISOR) HIV Ag/Ab Scrn, P Negative Negative 02/03/2023 1:36 PM CEREAL SUPERVISOR [facility] Comment: Negative result does not rule out HIV infection. If exposure to HIV infection occurred <14 days ago, contact the laboratory to request addition of HIV-1/HIV-2 RNA detection , Plasma (HPP12). HIV-1 p24 Ag Scrn, P Negative Negative 02/03/2023 1:36 PM CEREAL SUPERVISOR [facility]SC[facility] Comment: Negative result does not rule out HIV infection. If exposure to HIV infection occurred <14 days ago, contact the laboratory to request addition of HIV-1/HIV-2 RNA detection , Plasma (HPP12). HIV-1 Ab Scrn, P Negative Negative 02/03/2023 1:36 PM CEREAL SUPERVISOR [facility]SCA Comment: Negative result does not rule out HIV infection. If exposure to HIV infection occurred <14 days ago, contact the laboratory to request addition of HIV-1/HIV-2 RNA detection , Plasma (HPP12). HIV-2 Ab Scrn, P Negative Negative 02/03/2023 1:36 PM CEREAL SUPERVISOR [facility]SCA Comment: Negative result does not rule out HIV infection. If exposure to HIV infection occurred <14 days ago, contact the laboratory to request addition of HIV-1/HIV-2 RNA detection , Plasma (HPP12). Blood (Blood, Venous) 02/02/2023 4:13 PM CEREAL SUPERVISOR 02/03/2023 11:14 AM CEREAL SUPERVISOR Ancelmo Montes M.D. LAB MICROBIOLOGY - B LOOD ORDERABLES [facility] [address] [place] [id number], [facility] in [address] [address] * HCV Ab Scrn w/Reflex to HCV PCR, Serum (02/02/2023 4:13 PM CEREAL SUPERVISOR) HCV Ab Screen, S Negative Negative 02/04/20 1:19 AM CEREAL SUPERVISOR MKTO Comment: Biotin has been identified by the countersinker balance screw hole as a potential interfering substance. Higher concentrations of biotin may be found in multivitamins, hair/nail supplements, and workout supplements. If the result does not match clinical observations, repeat testing after patient refrains from the use of supplements for at least 12 hours. Blood (Blood, Venous) 02/02/2023 4:13 PM CEREAL SUPERVISOR 02/02/2023 8:53 PM CEREAL SUPERVISOR Narrative [facility] - 02/03/2023 1:19 AM CEREAL SUPERVISOR Specimen Information: Specimen ID: [id number] Specimen Type: Blood Specimen Collection Start Date: 02/02/2023 ??4:13 PM Specimen Received Date: 02/02/2023 ??8:53 PM Specimen ID: [id number] Specimen Type: Blood Specimen Collection Start Date: 02/02/2023 ??4:13 PM Specimen Received Date: 02/02/2023 ??6:55 PM Ancelmo Montes M.D. LAB MICROBIOLOGY - B LOOD ORDERABLES [facility] [address] [place] [address], [facility] [place] [address] * ThinPrep w/HPV Co-Test Screen (07/04/2020 4:45 PM CDT) 07/12/2020 7:51 AM CDT [facility] Report electronically signed by BON Rivas(ASCP) I verify that I have examined all relevant slides/materials for the specimen(s) and rendered or confirmed the diagnosis. 07/12/2020 7:51 AM CDT [facility] Gross Description Received specimen in a ThinPrep vial. 07/12/2020 7:51 AM CDT [facility] Pap Test Source Cervical/Endocervi carla 07/12/2020 7:51 AM CDT [facility] Menstrual Status(LMP, PM, ) 6 weeks 07/12/2020 7:51 AM CDT [facility] Interpretation Cervical/Endocervi carla ??(ThinPrep): Satisfactory for Evaluation Negative for Intraepithelial Lesion or Malignancy High Risk HPV: ??Negative Negative for High Risk HPV by nucleic acid amplification. The following High Risk HPV types were not detected: 16, 18, 31, 33, 35, 39, 45, 51, 52, 56, 58, 59, 66, and 68. 07/12/2020 7:51 AM CDT [facility] Varies (Cervix/Endocerv ix) 07/04/2020 4:45 PM CDT 07/05/2020 6:21 AM CDT Brayan Landry M.D. LAB PAP PATHDX O RDERABLES [facility] [address] [place] [address], [facility] [address] [place] [address] from Last 3 Months or Most Recently Relevant to Health Maintenance Advance Directives For more information, please contact: [phone] * Full Code (Latest Code Status on File) Date Activated Date Inactivated Comments 10/14/2022 3:30 PM 10/14/2022 6:23 PM Question Answer Comments Full Code: Discussed Care Teams Fiberglass Container Winding Operator Relationship Specialty Start Date End Date Enrique Walters M.D. [address] [place] [address] PCP - General Family Medicine 04/29/17
--- OUTSIDE RECORDS SUMMARY | 2023-09-15 08:36 | XMS_ITS ---
Author Organization [facility] Address [address] [place] [address] Care Team Providers Care Crate Icer Name Role Phone Unavailable Unavailable Unavailable Surgery Details Not on file Complications Check Surgery Details section. Procedure Estimated Blood Loss Check Surgery Details section. Procedure Findings Check Surgery Details section. Procedure Specimens Taken Check Surgery Details section.
--- OUTSIDE RECORDS SUMMARY | 2023-09-15 08:36 | XMS_ITS | Encounter Summary ---
Author Organization [facility] Address [address] [place] [address] Care Team Providers Care Taxation Economist Name Role Phone Enrique Walters M.D. Primary Care Provider [phone] Reason for Visit * Reason Comments Routine Visit MFM * Outpatient (Routine) - Closed Specialty Diagnoses / Procedures Referred By Erna banks Referred To Contact Obstetrics and Gynecology Cheryl Srinivasan M.B.B.S. [address] [place] [phone] [facility] Referral ID Status Reason Start Date Expiration Date Visits Re quested Visits Authorized [id number] Closed 06/03/2023 12/02/2024 1 1 Encounter Details Date Type Department Care Team (Latest Contact Info) Description 07/16/2023 4:00 PM CDT Routine Department of Obstetrics and Gynecology in [place], [place] [address] [place] [phone] Cheryl Srinivasan M.B.B.S. [address] [place] [phone] Maternal Care For Other Suspected Abnormality And Damage Cardiac Anomalies Single Gestation (HCC) (Primary Dx) Social History Tobacco Use Types Packs/Day Years Used Date Smoking Tobacco: Never Smokeless Tobacco: Never Alcohol Use Standard Drinks/Week Comments Yes 7 (1 standard drink = 0.6 oz pur e alcohol) occas [facility] Utilities Answer Date Recorded In the past 12 months has th e electric, gas, oil, or water company threatened to shut off services in your [...] often do you attend chur ch or yarsanism services? Never 05/18/2022 Do you belong to any clubs o r organizations such as mu-ism groups, unions, fraternal or athletic groups, or [...] Answer Date Recorded PHQ-2 Score 0 02/02/2023 [facility] of Occupat ional [facility] - Occupational Stress Questionnaire Answer Date Recorded [...] money to buy more. Never true 05/31/19 Within the past 12 months, t he [...] your living situation today? I have a [facility] boy place to live 05/31/2023 Education Answer Date Recorded What is the highest level of school you have completed or the highest degree you have received? 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, [employer]) 06/30/2020 Estimated Date of Delivery Comme nts Yes 08/29/2023 Based on Ultraso und Sex and Gender Information Value Date Recorded Sex Assigned at Female 04/29/2017 4:15 PM ENVIRONMENTAL EDUCATOR Gender Identity Female 04/29/2017 4:15 PM ENVIRONMENTAL EDUCATOR Sexual Orientation Straight 04/29/2017 4: 15 PM ENVIRONMENTAL EDUCATOR documented as of this encounter Last Filed Vital Signs Vital Sign Reading Time Taken Comments Blood Pressure 100/69 07/16/2023 3:43 PM CDT Pulse 99 07/16/2023 3:43 PM CDT Temperature 36.5 ??C (97.7 ??F) 07/16/2023 3:43 PM CD T Respiratory Rate - - Oxygen Saturation 97% 07/16/2023 3:43 PM CDT Inhaled Oxygen Concentration - - Weight 92.4 kg (203 lb 11.3 oz) 07/16/2023 3:43 PM CDT Height - - Body Mass Index 33.53 06/19/2023 9:22 AM CDT documented in this encounter Progress Notes * Cheryl Srinivasan M.B.B.S. - 07/16/2023 4:00 PM CDT SUBJECTIVE CHIEF COMPLAINT / REASON FOR VISIT Alba Claudio is a 32 y.o. . Patient's last menstrual period was 11/15/2022. Her Estimated Date of Delivery: 08/29/23 determined by ultrasound at 8 weeks gestational age. Gestational age is 33w5d. She returns today for follow- up due to foramen ovale aneurysm. HISTORY OF PRESENT CONDITION #1 Cancer Breast Family History #2 Asthma Exercise Induced Bronchospasm (HCC) #3 Adjustment Disorder With Anxious Mood #4 Incomplete Spontaneous (HCC) #5 Multigravida Advanced Maternal Age Affecting Management (HCC) #6 Recurrent Loss First Trimester (HCC) #7 History Of Uterine Scar From Previous Surgery OBJECTIVE VITAL SIGNS Vitals: 07/16/23 1543 BP: 100/69 Pulse: 99 Temp: 36.5 ??C SpO2: 97% DIAGNOSTICS Ultrasound: 07/16/23 IMPRESSION Transabdominal ultrasound was performed for growth Grant in Cephalic presentation. Composite biometry consistent with gestational age. EFW is 2302 grams at the 49% for gestational age. aneurysmal foramen ovale, normal heart rate and rhythm. 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 Incomplete Spontaneous (HCC) 10-14-2022: Chromosomal testing on products of conception confirm Trisomy 13 fetus Multigravida Advanced Maternal Age Affecting Management (HCC) Will be 33 at due date Carrier screening & NIPS normal Recurrent Loss First Trimester (HCC) Spontaneous 1st trimester loss x3 Trisomy 13 on products of conception from 3rd loss Potential karyotypes have been normal Antiphospholipid antibody syndrome screening negative Using vaginal progesterone in 1st trimester this History Of Uterine Scar From Previous Surgery History of prior Desires repeat This will be her last , discuss possible sterilization further later in . She may request to have her repeat performed on [birth year] birthday, [birth year] #1 atrial septal aneurysms We discussed today's ultrasound of normal growth, fluid and presentation. No evidence of cardiac compromise due to the atrial septal aneurysm and no signs of obstruction. I reassured Parris this is most likely self-limited and delivery can be conducted locally. She is to continue obstetric care with her primary. I personally spent 15 minutes in care of the patient today. Time includes both non face to face andface to face patient care. Phil Carranza. Maternal- medicine documented in this encounter Plan of Treatment Not on file documented as of this encounter Visit Diagnoses Diagnosis Maternal Care For Other Suspected Abnormality And Damage Cardiac Anomalies Single Gestation (HCC)- Primary documented in this encounter Additional Health Concerns Assessment Noted Time PHQ-9 Depression Total Score: 1 02/03/20 23 2:41 PM ENVIRONMENTAL EDUCATOR documented as of this encounter Care Teams Taxation Economist Relationship Specialty Start Date End Date Enrique Walters M.D. [address] [facility] [place] [phone] PCP - General Family Medicine 04/29/17 documented as of this encounter
--- OUTSIDE RECORDS SUMMARY | 2023-09-15 08:36 | XMS_ITS | Referral Summary ---
Author Organization [facility] Address [address] [place] [address] Care Team Providers Care Electrical Line Mechanic Name Role Phone Enrique Walters M.D. Primary Care Provider [phone] Source Comments Patient records contain information from all sites at [facility]. For routine questions regarding patient records, call [phone] during business hours, M-F 8:00 AM - 5:00 PM Central Time. Record requests for emergency care only can be directed to [phone] at any time.[facility] Encounters Date Type Department Care Team Description 07/16/2023 4:00 PM CDT Routine Department of Obstetrics and Gynecology in [place], [place] [address] [place] [address] Sangeeta Srinivasan M.B.B.S. Maternal Care For Other Suspected Abnormality And Damage Cardiac Anomalies Single Gestation (HCC) (Primary Dx) 07/16/2023 2:29 PM CDT - 07/16/2023 11:59 PM CDT Hospital Encounter Department of Obstetrics and Gynecology in [place], [place] [address] [place] [phone] Sangeeta Srinivasan M.B.B.S. Abnormal Ultrasound Discharge Disposition: Home or Self Care 06/19/2023 10:00 AM CDT Office Visit Urgent Care, [facility], in [place], [place] [address] [place] [phone] Azalia Harry APRN, C.N.P., D.N.P. Cough Acute (Primary Dx); Gastroesophageal Reflux Disease Without Esophagitis Discharge Disposition: Home or Self Care from Last 3 Months Allergies Active Allergy Reactions Criticality Noted Date [...] 1 tablet by mouth daily. Active omega 5-wac-qxi-fish oil 1,000 mg (120 mg-180 mg) capsule [...] Unspecified 11/20/2019 023 22 Weeks Gestation 03/19/2020 Immunizations Name Administration Dates Next Due Tdap 02/19/2020,10/03/2018 influenza vaccine quad (FLUZONE/FLUARIX) (6 months and older)(PF) 12/29/2021,03/20/2021,12/26/2019, 019,12/06/2017,12/21/2016 Social History Tobacco Use Types Packs/Day Years Used Date Smoking Tobacco: Never Smokeless Tobacco: Never Tobacco Cessation:Counseling Given: Yes Alcohol Use Standard Drinks/Week Comments Yes 7 (1 standard drink = 0.6 oz pur e alcohol) occas [facility] Utilities Answer Date Recorded In the past [...] often do you attend chur ch or baptist services? Never 05/18/2022 Do you belong to any clubs o r organizations such as faith groups, unions, fraternal or athletic groups, or [...] Answer Date Recorded PHQ-2 Score 0 02/02/2023 [facility] of Occupat ional Health - Occupational Stress [...] your living situation today? [facility] 05/31/2023 Education Answer Date Recorded What is the highest level of school you have completed or the highest degree you have received? 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, [employer]) 06/30/2020 Estimated Date of Delivery Comme nts Yes 08/29/2023 Based on Ultraso und Sex and Gender Information Value Date Recorded Sex Assigned at Female 04/29/2017 4:15 PM DIRECTOR [place] Gender Identity Female 04/29/2017 4:15 PM DIRECTOR [place] Sexual Orientation Straight 04/29/2017 4: 15 PM DIRECTOR [place] Last Filed Vital Signs Vital Sign Reading [...] 06/19/2023 9:22 AM CDT Plan of Treatment Not on file Procedures Procedure Name Priority Date/Time Associated Diagnosis Comments US OB FOLLOW-UP AND OR GROWTH PARK RAD - Routine (most inpatients and all outpatients) 07/16/2023 3:02 PM CDT Abnormal Ultrasound HCV AB SCRN W/REFLEX TO HCV PCR, S Routine 02/02/2023 4:13 PM DIRECTOR [place] Multigravida Advanced Maternal Age Affecting Management (HCC) HIV-1/-2 AG AND AB SCRN, PLASMA Routine 02/02/2023 4:13 PM DIRECTOR [place] Multigravida Advanced Maternal Age Affecting Management (HCC) [...] ??32 yrs Sex: ??Female Ref Phys: ??SANGEETA ARAB Exam Date: 07/16/2023 Procedure: US OB FOLLOW-UP AND OR GROWTH PARK Exam Site: [facility] OB #3 Plurality: 1 OBHx: [G:(5)] [...] by Gallo Martinez on 07/16/2023 3:02:15 PM. Siebel Developer: ??Gallo Martinez Thank You For This Referral Procedure Note Muna Rivero M.D. - 07/16/2023 ALBA CLAUDIO OB Exam, 07/16/2023 EXAM INFORMATION Patient Name: ALBA CLAUDIO : 1990 Age: 32 yrs Sex: Female Ref Phys: SANGEETA SRINIVASAN Exam Date: 07/16/2023 Procedure: US OB FOLLOW-UP AND OR GROWTH PARK Exam Site: [facility] OB #3 Plurality: 1 OBHx: [G:(5)] [...] by Gallo Martinez on 07/16/2023 3:02:15 PM. Siebel Developer: Gallo Martinez Thank You For This Referral Sangeeta TURNER OB US PROCEDUR ES * HIV-1/-2 Ag and Ab Scrn, Plasma (02/02/2023 4:13 PM DIRECTOR [place]) HIV Ag/Ab Scrn, P Negative Negative 02/03/2023 1:36 PM DIRECTOR [place] [facility] Comment: Negative result does not rule out HIV infection. If exposure to HIV infection occurred <14 days ago, contact the laboratory to request addition of HIV-1/HIV-2 RNA detection , Plasma (HPP12). HIV-1 p24 Ag Scrn, P Negative Negative 02/03/2023 1:36 PM DIRECTOR [place] [facility] Comment: Negative result does not rule out HIV infection. If exposure to HIV infection occurred <14 days ago, contact the laboratory to request addition of HIV-1/HIV-2 RNA detection , Plasma (HPP12). HIV-1 Ab Scrn, P Negative Negative 02/03/2023 1:36 PM DIRECTOR [place] [facility] Comment: Negative result does not rule out HIV infection. If exposure to HIV infection occurred <14 days ago, contact the laboratory to request addition of HIV-1/HIV-2 RNA detection , Plasma (HPP12). HIV-2 Ab Scrn, P Negative Negative 02/03/2023 1:36 PM DIRECTOR [place] [facility] Comment: Negative result does not rule out HIV infection. If exposure to HIV infection occurred <14 days ago, contact the laboratory to request addition of HIV-1/HIV-2 RNA detection , Plasma (HPP12). Blood (Blood, Venous) 02/02/2023 4:13 PM DIRECTOR [place] 02/03/2023 11:14 AM DIRECTOR [place] Ancelmo Montes M.D. LAB MICROBIOLOGY - [place] [address], [facility] [place] [address] * HCV Ab Scrn w/Reflex to HCV PCR, Serum (02/02/2023 4:13 PM DIRECTOR [place]) HCV Ab Screen, S Negative Negative 02/04/20 1:19 AM DIRECTOR [place] [facility] Comment: Biotin has been identified by the keypunch operators supervisor as a potential interfering substance. Higher concentrations of biotin may be found in multivitamins, hair/nail supplements, and workout supplements. If the result does not match clinical observations, repeat testing after patient refrains from the use of supplements for at least 12 hours. Blood (Blood, Venous) 02/02/2023 4:13 PM DIRECTOR [place] 02/02/2023 8:53 PM DIRECTOR [place] Narrative [facility] - 02/03/2023 1:19 AM DIRECTOR [place] Specimen Information: Specimen ID: [id number] Specimen Type: Blood Specimen Collection Start Date: 02/02/2023 ??4:13 PM Specimen Received Date: 02/02/2023 ??8:53 PM Specimen ID: [id number] Specimen Type: Blood Specimen Collection Start Date: 02/02/2023 ??4:13 PM Specimen Received Date: 02/02/2023 ??6:55 PM Ancelmo Montes M.D. LAB MICROBIOLOGY - B LOOD ORDERABLES [facility] [place] [address], [facility] [place] [address] [place] [address] * ThinPrep w/HPV Co-Test Screen (07/04/2020 4:45 [...] Landry M.D. LAB PAP PATHDX O RDERABLES [facility] CYTOLOGY [address] [place] [address], [place] [facility] [address] [place] [address] from Last 3 Months or Most Recently Relevant to Health Maintenance Advance Directives For more information, please contact: [phone] * Full Code (Latest Code Status on File) Date Activated Date Inactivated Comments 10/14/2022 3:30 PM 10/14/2022 6:23 PM Question Answer Comments Full Code: Discussed Care Teams Electrical Line Mechanic Relationship Specialty Start Date End Date Enrique Walters M.D. [address] [place] [phone] PCP - General Family Medicine 04/29/17
--- OUTSIDE RECORDS SUMMARY | 2023-09-15 08:36 | XMS_ITS | Encounter Summary ---
Author Organization [facility] Address [address] [place] [address] Care Team Providers Care Hearing Screen Coordinator Name Role Phone Enrique Walters M.D. Primary Care Provider [phone] Encounter Details Date Type Department Care Team (Latest Contact Info) Description 07/16/2023 2:29 PM CDT - 07/16/2023 11:59 PM CDT Hospital Encounter Department of Obstetrics and Gynecology in [place], [place] [address] [place] [phone] Sangeeta Srinivasan M.B.B.S. [address] [place] [phone] Abnormal Ultrasound Discharge Disposition: Home or Self Care Social History Tobacco Use Types Packs/Day Years Used Date Smoking Tobacco: Never Smokeless Tobacco: Never Alcohol Use Standard Drinks/Week Comments Yes 7 (1 standard drink = 0.6 oz pur e alcohol) occas [facility] Utilities Answer Date Recorded In the past 12 months has e Email Data Source, gas, oil, or water [email or web address] threatened to shut off services in your [...] 05/18/2022 How often do you attend chur or amish services? Never 05/18/2022 Do you belong to any clubs o r organizations such as bahai groups, unions, fraternal or athletic groups, or [...] Answer Date Recorded PHQ-2 Score 0 02/02/2023 [facility] of Occupat ionca Health - Occupational Stress Questionnaire Answer Date [...] your living situation today? I have a [facility] place to live 05/31/2023 Education Answer Date Recorded What is the highest level of school you have completed or the highest degree you have received? 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 18 g 3 07/17/2022 calcium carbonate (Tums) 500 mg (200 mg calcium) chewable tablet Chew 200 mg. 05/11/2023 ferrous sulfate 325 mg (65 mg iron) tablet Take 325 mg by mouth every other day. fluticasone propionate (FLOVENT DISKUS) 100 mcg/actuation diskus inhalerIndications:Asth ma Exercise Induced Bronchospasm (HCC) Inhale 1 puff 2 (two) times a day. Rinse mouth with water after use to reduce aftertaste and incidence of candidiasis. Do not swallow. 60 each 11 07/30/2022 omega 3-hnc-esi-fish oil 1,000 mg (120 mg-180 mg) capsule Take by mouth. omeprazole (PriLOSEC) [address] capsuleIndications:Néstor roesophageal Reflux Disease Without Esophagitis Take 1 capsule (20 mg total) by mouth daily. 90 capsule 3 04/08/2023 vitamin-iron fumarate-FA 28 mg iron- 800 mcg per tablet Take 1 tablet by mouth daily. documented as of this encounter Plan of Treatment Not on file documented as of this encounter Procedures Procedure Name Priority Date/Time Associated Diagnosis Comments US OB FOLLOW-UP AND OR GROWTH PARK RAD - Routine (most inpatients and all outpatients) 07/16/2023 3:02 PM CDT Abnormal Ultrasound documented in this encounter Results * US OB Follow-up and or [...] FOLLOW-UP AND OR GROWTH PARK Exam Site: [facility] OB #3 Plurality: 1 OBHx: [G:(5)] ?F [...] by Gallo Martinez on 07/16/2023 3:02:15 PM. Teller Supervisor: ??Gallo Martinez Thank You For This Referral Procedure Note Muna Rivero M.D. - 07/16/2023 ALBA CLAUDIO OB Exam, 07/16/2023 EXAM INFORMATION Patient Name: ALBA CLAUDIO : 1990 Age: 32 yrs Sex: Female Ref Phys: SANGEETA SRINIVASAN Exam Date: 07/16/2023 Procedure: US OB FOLLOW-UP AND OR GROWTH PARK Exam Site: [facility] OB #3 Plurality: 1 OBHx: [G:(5)] F [...] by Gallo Martinez on 07/16/2023 3:02:15 PM. Teller Supervisor: Gallo Martinez Thank You For This Referral Sangeeta Youngblood IMG OB US VINAY ES documented in this encounter Visit Diagnoses Diagnosis Abnormal Ultrasound documented in this encounter Additional Health Concerns Assessment Noted Time PHQ-9 Depression Total Score: 1 02/03/20 23 2:41 PM DIRECTOR OF PHYSICAL THERAPY documented as of this encounter Care Teams Hearing Screen Coordinator Relationship Specialty Start Date End Date Enrique Walters M.D. [address] [place] [phone] PCP - General Family Medicine 04/29/17 documented as of this encounter
--- OUTSIDE RECORDS SUMMARY | 2023-09-15 08:36 | XMS_ITS | Clinical Summary ---
Author Organization [facility] Address [address] [address] Phone Care Team Providers Care Ostomy Rn Name Role Phone Elsewhere, Pcp Primary Care Provider Unavailabl e Allergies Active Allergy Reactions Criticality Noted Date Comments Dust Mite Extract Other Low 11/10/2018 Stuffy nose Molds & Smuts Unknown 11/10/2018 Stuffy nose Pollen Extract Unknown 11/10/2018 Stuffy nose Unclear Patient Report Hives High 04/29/2023 Animal Dander Medications Medication Sig Dispensed Refills Start Date End Date Status fluticasone propionate, Inhal, (Flovent Diskus) 100 MCG/ACT inhaler Inhale 1 Puff into the lungs two times a day. 07/30/2022 Active Weston-3 1000 MG capsule Take by mouth. Active omeprazole (PriLOSEC) 20 MG delayed-release capsule Take 20 mg by mouth one time a day. 04/08/2023 Active Vit-Fe Fumarate-FA ( OR) Take by mouth. Active Active Problems Problem Noted Date Diagnosed Date Obesity affecting , antepartum, unspecified obesity type 05/03/2023 Previous delivery affecting , antepartum 05/03/2023 Adjustment disorder with anxious mood 04/29/2023 04/29/2023 Elderly multigravida with an tepartum condition or complication 02/02/2023 04/29/2023 Overview: Will be 33 at due date Carrier screening & NIPS normal Habitual aborter, antepartum condition or compli cation 02/02/2023 04/29/2023 Overview: 10-14-2022: Chromosomal testing on products of conception confirm Trisomy 13 fetus Spontaneous 1st trimester loss x3 Trisomy 13 on products of conception from 3rd loss Potential karyotypes have been normal Antiphospholipid antibody syndrome screening negative Using vaginal progesterone in 1st trimester this Exercise-induced asthma 05/22/2019 04/29/19 Estimated Date of Delivery Comme nts Yes 08/29/2023 Based on Other B asis Immunizations Name Administration Dates Next Due Influenza Vaccine, Quadrival ent, Adjuvanted (Fluad) 65+ Years 12/29/2021,03/20/2021,12/26/2019, 019,12/06/2017,12/21/2016 Tdap (7 years and older) 02/19/2020,10/03/2018 Surgical History Surgery Date Site/Laterality Comments SECTION 05/17/2020 D & C AFTER DELIVERY Medical History Medical History Date Comments Adjustment disorder with anx ious mood 04/29/2023 Elderly multigravida with antepartum condition or complication 02/02/2023 Formatting of this note migh t be different from the original. Will be 33 at due date Carrier screening & NIPS normal Habitual aborter, antepartum condition or complication 02/02/2023 Formatting of this note migh t be different from the original. 10-14-2022: Chromosomal testing on products of conception confirm Trisomy 13 fetus Spontaneous 1st trimester loss x3 Trisomy 13 on products of conception from 3rd loss Potential karyotypes have been normal Antiphospholipid antibody syndrome screening negative Using vaginal Exercise-induced asthma 05/22/2019 Family History Medical History Relation Comments Breast Cancer Sister Twin sister at y oung age Relation Status Comments Father Mother Sister Social History Tobacco Use Types Packs/Day Years Used Date Smoking Tobacco: Never Smokeless Tobacco: Never Tobacco Cessation:Counseling Given: Not Answered Alcohol Use Standard Drinks/Week Comments Not Currently 0 (1 standard drink = 0.6 oz pur e alcohol) Estimated Date of Delivery Comme nts Yes 08/29/2023 Based on Other B asis Sex and Gender Information Value Date Recorded Sex Assigned at Not on file Gender Identity Not on file Sexual Orientation Not on file Obstetrics History Para Term AB IAB SAB Ectopic Molar Multiple Living Live Births 5 1 1 3 3 1 1 Date Outcome GA Total Labor Labor/2nd/3rd Weight Sex Type Anes PTL Sherri A1 A5 Name Clin 2018 SAB 8w1 d Demis e 2020 Term 40w 2d 16h 25m 11h 15m/5h 10m/ 4282 g (9 lb 7 oz) F CS-LT ranv Epidur al Livin g 7 8 HOLLIS SAEZ,GIR L ALBA banks M.D. Delivery Location:[facility] ([facility]) 2021 SAB 5w1 d Demis e 2022 SAB 11w 2d M N Demis e Comments:Trisomy 13 Current Summary Episode Dates Number of Fetuses Estimated Date of Delivery 04/29/2023 - Present (09/15/2023) 08/29/2023 (set by Shelbie Florez, MARKETING ENGINEER on 05/03/2023 based on Other Basis) Dating Summary Based On ARVIND GA Diff Other Basis 08/29/2023 Working Last Menstrual Period on 11/15/2022 08/22/2023 +1w0d Ultrasound on 01/28/2023 08/24/2023 +5d GA:10w2d Vitals Pregravid Weight Height TWG (As of 09/15/2023) Pregrav id BMI 1.645 m (5' 4.75) Notes Progress Notes - Obstetrics - 05/03/2023 - GA:23w1d 05/03/2023 - - Aguilar Somers MD Patient desires repeat delivery on 08/26/2023 RONMENTAL MANAGER 05/03/2023 - - Aguilar Somers MD Images from the original note were not included. INITIAL OB VISIT Subjective: Alab Claudio is a 32 year old female She presents for an initial appointment today. No obstetrical complaints. Transferring care because here previous provider is no longer offering obstetrical services, labor and delivery was closed. She has a previous delivery and desires to undergo repeat with this preferably on 08/26/2023. Patient had a previous complicated with trisomy 13 that ended up being a miscarriage. Normal NIPT this . Patient does not want to know the gender. Pt is currently taking PNV's. LMP:Patient's last menstrual period was 11/15/2022. ARVIND:Estimated Date of Delivery: 08/29/23 Weeks gestation: 23 Alba Claudio will be following who: open Patient notes the following DSM-IV Depression symptoms on a scale of 0-3: (PHQ2 answerers will only show if no concerns were noted in first two questions) No data to display (Typical scores: 0-4=no or minimal; 5-9=minor; 10-14 =mild major depression; 15-19=moderate major depression; 20-27= severe major depression.) Intimate Partner Violence: Not on file OBHX: OB History Para Term AB Living 5 1 1 0 3 1 SAB IAB Ectopic Molar Multiple Live Births 3 0 0 0 0 1 Her cycles are regualr: yes She has had any vaginal bleeding since her last period. Pap hx: normal, last pap normal Current symptoms include: none Father of Baby Name: Ander Father involved: Yes Any substance use since her last LMP such as alcohol, tobacco, marijuana, cocaine, amphetamines, street drugs, caffeine: yes If yes please list type and amount used: small cup of coffee like twice a week. Weight change: no Gain or lost and amount: none Denies issues with domestic violence. Any family obstetric history: yes - Maternal sister had a premature delivery at 34 weeks. Maternal grandmother multiple miscarriages. Patient age 35 or greater at ARVIND: no Genetic History: Thalassemia (Greenlandic, reek, Mediterranean or background) If yes who: no Sanford-Sachs (Ashkenazi Quaker, Luxembourger [place] background) If yes who: no Sickle Cell Disease or trait () if yes who: no Down syndrome or other chromosomal problem- if yes who: no Hemophilia or other blood disorders- if yes who: no Muscular Dystrophy- if yes who: no Cystic Fibrosis- if yes who: no Farhad's Chorea- if yes who: no Intellectual Disability/Special Needs/Autism- if yes who: no Maternal Metabolic Disorder (DM, PKU) if yes who: no Other inherited genetic or chromosomal disorder- if yes who: no Child with defect not listed above: yes - Patient had a SAB positive with Trisomy 13 Patient or father with defect themselves- if yes who and what is defect:no 3 or more first trimester spontaneous abortions or stillbirths: yes - 3 INFECTION HISTORY: Lives with someone with TB or TB exposed: no Has patient ever tested positive for MRSA: no Alba Claudio has had chicken pox or has received the chicken pox vaccine: yes Any new rash or viral illness since LMP- if yes what illness: no STD hx: none Are there cats in the home- if yes inside or outside: no Does she have close contact with children at risk for Parvovirus:yes GENETICS HISTORY: Reviewed, noncontributory besides history of previous with trisomy 13 PMH: Past Medical History: Diagnosis Date Adjustment disorder with anxious mood 04/29/2023 Elderly multigravida with antepartum condition or complication 02/02/2023 Will be 33 at due date Carrier screening & NIPS normal Exercise-induced asthma 05/22/2019 Habitual aborter, antepartum condition or complication 02/02/2023 10-14-2022: Chromosomal testing on products of conception confirm Trisomy 13 fetus Spontaneous 1st trimester loss x3 Trisomy 13 on products of conception from 3rd loss Potential karyotypes have been normal Antiphospholipid antibody syndrome screening negative Using vaginal PSH: Past Surgical History: Procedure Laterality Date SECTION 05/17/2020 D & C AFTER DELIVERY MEDS: Current Outpatient Medications Medication Instructions albuterol HFA (Proair HFA, Ventolin HFA) 108 (90 Base) MCG/ACT inhalation aerosol 2 Puffs, Inhalation, EVERY 4 HOURS NEEDED fluticasone propionate, Inhal, (Flovent Diskus) 100 MCG/ACT inhaler 1 Puff, Inhalation, 2 TIMES DAILY Weston-3 1000 MG capsule Oral omeprazole (PRILOSEC) 20 mg, Oral, ONCE DAILY Vit-Fe Fumarate-FA ( OR) Oral ALLERGIES: Allergies Allergen Reactions Unclear Patient Report Hives Animal Dander Molds & Smuts Unknown Stuffy nose Pollen Extract Unknown Stuffy nose Dust Mite Extract Other Stuffy nose SOCHX: Social History Socioeconomic History Marital status: Spouse name: Not on file Number of children: Not on file Years of education: Not on file Highest education level: Not on file Occupational History Not on file Tobacco Use Smoking status: Never Smokeless tobacco: Never Vaping Use Vaping Use: Never used Substance and Sexual Activity Alcohol use: Not Currently Drug use: Not on file Sexual activity: Yes Partners: Male Other Topics Concern Not on file Social History Narrative Not on file Social Determinants of Health Financial Resource Strain: Not on file Food Insecurity: Not on file Transportation Needs: Not on file Physical Activity: Not on file Stress: Not on file Social Connections: Not on file Intimate Partner Violence: Not on file Housing Stability: Not on file FAMHX: Family History Problem Relation Age of Onset Breast Cancer Sister 29 Twin sister at young age ROS: CONSTITUTIONAL: denies fatigue, fever, chills or loss of appetite EYES: denies visual changes HENT: denies headaches CV: denies chest pain or shortness of breath, RESPIRATORY: denies cough, wheezing or palpitations GI: denies nausea/vomiting, diarrhea, constipation or abdominal pain : denies frequency/burning with urination, blood in urine, urinary leakage or painful periods BREAST: denies breast lumps tenderness or nipple discharge SKIN: denies new skin lesion or changes in existing skin lesions PSYCH: denies anxiety, depression or difficulty sleeping ENDOCRINE: denies heat intolerance, acne or abnormal hair growth HEME/LYMPH: No easy bleeding/bruising or swollen nodes Objective: Vitals: 05/03/23 1532 BP: 102/60 Height: 1.645 m (5' 4.75) Weight: 85.8 kg (189 lb 3.2 oz) BMI (Calculated): 31.73 Body mass index is 31.73 kg/m??. Physical Exam: GENERAL: 32 year old female in NAD. HEENT: Neck supple, EOMI, thyroid without obvious nodules or enlargement. No lymphadenopathy. LUNGS: CTA bilaterally, no wheezes with forced expiration, respirations unlabored. HEART: Regular rate without murmurs. BREASTS: Declined by patient. ABDOMEN: Soft, non-tender, no HSM, no palpable masses, scars, or lesions. BACK: No CVA tenderness bilaterally. PELVIC: Declined by patient. EXTREMITIES: no edema. SKIN: No rashes, no evidence of skin breakdown, no suspicious nevi. MENTAL STATUS: Alert, normal MS. Answers all questions appropriately. Assessment and Plan: ASSESSMENT: Alba is a 32 year old female at 23w1d by ultrasound. RISKS: Previous delivery Maternal obesity History of trisomy 13 Late transfer of care History of recurrent miscarriages PLAN: Reviewed routine care, common concerns, warning signs and symptoms, things to avoid and when/how to call. Routine NOB Labs ordered today. Take vitamins. Hospital and practice style discussed with cross coverage systems. Call coverage reviewed. Referred to literature in the [place] TUBE OPERATOR first OB packet. Discussed/offered optional screening, including for aneuploidy, open neural tube defects, and genetic carrier screening. Green form reviewed and signed. Patient had testing already done Immunizations: Discussed flu, Tdap and COVID. Weight gain goals reviewed. Return to office in 4 weeks and as needed. Patient to call clinic with any concerns and schedule next appointment as directed. Problem List Items Addressed This Visit Gravid/ Obesity affecting , antepartum, unspecified obesity type Previous delivery affecting , antepartum Other Visit Diagnoses care, second trimester - Primary Recommended patient to follow a healthy diet and perform regular exercise. Will complete 1 hour glucose tolerance test next visit. All questions were answered and patient voiced understanding and agreed with plan. Aguilar Story MD RONMENTAL MANAGER Last Filed Vital Signs Vital Sign Reading Time Taken Comments Blood Pressure 102/60 05/03/2023 3:32 PM ENVIRONMENTAL MANAGER Pulse - - Temperature - - Respiratory Rate - - Oxygen Saturation - - Inhaled Oxygen Concentration - - Weight 85.8 kg (189 lb 3.2 oz) 05/03/2023 3:32 P M ENVIRONMENTAL MANAGER Height 164.5 cm (5' 4.75) 05/03/2023 3:32 PM CS T Body Mass Index 31.73 05/03/2023 3:32 PM ENVIRONMENTAL MANAGER Plan of Treatment Health Maintenance Due Date Last Done Comments Cervical Cancer Screening 1988 Last pap w/ HPV Testing 1988 Last pap w/o HPV Testing 1988 Pneumococcal/PCV20 Vaccine: Pediatrics (2-5 yrs) and At-Risk Patients (6-64 yrs) (Standing Order) (1 of 2 - PCV) 1994 Hepatitis B Vaccine (Standing Order) (1 of 3 - 19+ 3-dose series) 08/26/2007 TDAP in 05/30/2023 02/19/2020, 10/03/2018 Influenza Vaccine Seasonal (Standing Order) (Season Ended) 2023 12/29/2021, 03/20/2021, 12/26/2019, Additional history exists TETANUS (Standing Order) 02/18/2030 02/19/2020, 09/06 PERTUSSIS (Standing Order) Completed 02/19/2020, HPV Vaccine (Standing Order) Aged Out No longer eligible based on patient's age to complete this topic Care Teams Ostomy Rn Relationship Specialty Start Date End Date Elsewhere, Pcp PCP - General 05/03/23
--- OUTSIDE RECORDS SUMMARY | 2023-09-15 08:37 | XMS_ITS | Clinical Summary ---
Author Organization [facility] Address [place], [place] [address] Care Team Providers Care Senior Product Development Engineer Name Role Phone Enrique Walters MD Primary Care Provider [phone] Pcp, No Unavailable Unavailable Allergies No known active allergies Medications No known medications Social History Tobacco Use Types Packs/Day Years Used Date Smoking Tobacco: Never Sex and Gender Information Value Date Recorded Sex Assigned at Not on file Gender Identity Not on file Sexual Orientation Not on file Obstetrics History Last Filed Vital Signs Vital Sign Reading Time Taken Comments Blood Pressure 101/60 09/24/2014 5:11 PM CDT Pulse 98 09/24/2014 5:11 PM CDT Temperature 36.6 ??C (97.9 ??F) 09/24/2014 5:11 PM CD T Respiratory Rate 14 09/24/2014 5:11 PM CDT Oxygen Saturation - - Inhaled Oxygen Concentration - - Weight - - Height - - Body Mass Index - - Plan of Treatment Health Maintenance Due Date Last Done Comments Tdap 08/26/1999 Depression screening for age 12+ 2000 HIV for age 15-65 08/26/2003 BMI (ht and wt on same day) for age 18+ 2006 Hepatitis C screening for ag e 18-79 2006 Tetanus booster 2008 Pap test for age 21-65 2009 COVID-19 vaccine series (2022-24 season) 2022 Influenza for age 9-49 11/07/2023 Pneumococcal series for age 6-64 Aged Out No longer eligible based on patient's age to complete this topic Care Teams Senior Product Development Engineer Relationship Specialty Start Date End Date Enrique Walters MD [address] [place] [id number] PCP - General Family Practice 12/09/21 Pcp, No . 12/09/21
--- OUTSIDE RECORDS SUMMARY | 2023-09-15 08:37 | XMS_ITS | Encounter Summary ---
Author Organization [facility] Address [address] [place] [address] Care Team Providers Care Cut Pressman Name Role Phone Enrique Walters M.D. Primary Care Provider [phone] Reason for Visit * Reason Comments Cough Wednesday night GERD Encounter Details Date Type Department Care Team (Late st Contact Info) Description 06/19/2023 10:00 AM CDT Office Visit Urgent Care, [facility], in [place], [place] [address] [place] [phone] Azalia Harry, CHRISTINE, C.N.P., D.N.P. [address] [place] [phone] Cough Acute (Primary Dx); Gastroesophageal Reflux Disease Without Esophagitis Discharge Disposition: Home or Self Care Social History Tobacco Use Types Packs/Day Years Used Date Smoking Tobacco: Never Smokeless Tobacco: Never Tobacco Cessation:Counseling Given: Yes Alcohol Use Standard Drinks/Week Comments Yes 7 (1 standard drink = 0.6 oz pur e alcohol) occas [facility] Utilities Answer Date Recorded In the past 12 months has e [employer], gas, oil, or water trinket threatened to shut off services in your [...] How often do you attend chur or latter-day services? Never 05/18/2022 Do you belong to any clubs o r organizations such as moravian groups, unions, fraternal or athletic groups, or [...] Answer Date Recorded PHQ-2 Score 0 02/02/2023 [facility] [place] of Occupat ional Health - Occupational Stress [...] your living situation today? I have a [facility] place to live 05/31/2023 Education Answer Date Recorded What is the highest level of school you have completed or the highest degree you have received? 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, THERMOSPRAY OPERATOR, [employer]ER[employer]E) 06/30/2020 Estimated Date of Delivery Comme nts Yes 08/29/2023 Based on Ultraso und Sex and Gender Information Value Date Recorded Sex Assigned at Female 04/29/2017 4:15 PM INTERNET SPECIALIST Gender Identity Female 04/29/2017 4:15 PM INTERNET SPECIALIST Sexual Orientation Straight 04/29/2017 4: 15 PM INTERNET SPECIALIST documented as of this encounter Last Filed Vital Signs Vital Sign Reading Time Taken Comments Blood Pressure 88/53 06/19/2023 9:22 AM CDT Pulse 107 06/19/2023 9:22 AM CDT Temperature 37 ??C (98.6 ??F) 06/19/2023 9:22 AM CDT Respiratory Rate 20 06/19/2023 9:22 AM CDT Oxygen Saturation 97% 06/19/2023 9:22 AM CDT Inhaled Oxygen Concentration - - Weight 91.2 kg (201 lb) 06/19/2023 9:22 AM CDT Height 166 cm (5' 5.35) 06/19/2023 9:22 AM CDT Body Mass Index 33.09 06/19/2023 9:22 AM CDT documented in this encounter Progress Notes * Azlaia Harry APRN, C.N.P., D.N.P. - 06/19/2023 10:00 AM CDT CHIEF COMPLAINT / REASON FOR VISIT / HPI Chief Complaint Patient presents with Cough Wednesday night GERD She presents for evaluation of a cough and acid reflux. She is currently 30 weeks . She hasa history of acid reflux and takes daily omeprazole. On Wednesday night she had significant acid reflux symptoms and was up most of the night coughing as a result of her symptoms. She believes it while she was coughing, she may have aspirated some of the reflux. Since then she has had some mild pain with coughing in the chest, a hoarse voice. She denies having any shortness of breath. She denies any upper respiratory symptoms such as nasal congestion, rhinorrhea, postnasal drainage. She has been experiencing reflux symptoms since Wednesday night as well. She continues to take her daily omepraz ole and Tums. She has not had a fever since the potential aspiration incident. The patient's social and medical history were reviewed in the electronic medical record. ALLERGIES/CONTRAINDICATIONS Allergies Allergen Reactions Animal Dander Other (see comments) hives House Dust Mite Other (see comments) Stuffy nose Mold Other (see comments) Stuffy nose Pollen Extracts Other (see comments) Stuffy nose OBJECTIVE VITAL SIGNS BP (!) 88/53 Pulse 107 Temp 37 ??C Resp 20 Ht 166 cm Wt 91.2 kg LMP 11/15/2022 Comment:ovulation spike on 12/06-12/07 SpO2 97% BMI 33.09 kg/m?? PHYSICAL EXAMINATION General: Alert and in no acute distress. HEENT: Pupils are PERRLA. Conjunctivae clear without hemorrhages or exudates. Auditory canals normal without erythema or edema. TMs pearly adam and intact without erythema. Oral cavity adequately hydrated. Posterior pharynx normal without erythema or drainage present. Neck: Supple without lymphadenopathy. Respiratory: Effort easy. Lung sounds clear to auscultation. Cardiovascular: S1, S2 present. Normal rate and rhythm. Musculoskeletal: Grossly intact. No deformities noted. Skin: Normal color, temperature and moisture. No rashes or lesions noted. Psych: The patient's behavior, mood, affect, cognition and insight all appropriate. ASSESSMENT / PLAN #1 Cough Acute #2 Gastroesophageal Reflux Disease Without Esophagitis Patient presents to urgent care for evaluation of cough and acid reflux symptoms. She was initiallyconcerned for potential aspiration pneumonia. Her physical exam is reassuring. Her lung sounds are clear throughout all lung valencia. She does not have any worsening shortness of breath. She has not had any fevers. Discussed that as she is , an x-ray is not necessarily desirable. Since she has not had any concerning pneumonia symptoms such as fever, shortness of breath, we agreed to continue to monitor her symptoms. She will also continue with her omeprazole, Tums. She should try to limit eating late at night, as this may trigger her reflux symptoms. She should also try to elevate the head of the bed at bedtime and avoid foods that may also trigger her reflux symptoms. We discussed that if she begins to experience worsening shortness of breath, fevers, worsening chest pain that sheshould return for re-evaluation. Concerning symptoms to watch for were discussed. If new or concerning symptoms develop, seek medical attention. Patient verbalizes understanding and acceptance of this plan of care and denies any further needs or questions at this time. Azalia Harry APRN, C.N.P., D.N.P. documented in this encounter Plan of Treatment Not on file documented as of this encounter Visit Diagnoses Diagnosis Cough Acute- Primary Gastroesophageal Reflux Disease Without Esophagitis documented in this encounter Additional Health Concerns Assessment Noted Time PHQ-9 Depression Total Score: 1 02/03/20 23 2:41 PM INTERNET SPECIALIST documented as of this encounter Care Teams Cut Pressman Relationship Specialty Start Date End Date Enrique Walters M.D. [address] [place] [phone] PCP - General Family Medicine 04/29/17 documented as of this encounter
--- OUTSIDE RECORDS SUMMARY | 2023-09-15 08:37 | XMS_ITS | Encounter Summary ---
Author Organization [facility] Address [address] [place] [address] Care Team Providers Care Police Liaison Officer Name Role Phone Enrique Walters M.D. Primary Care Provider [phone] Reason for Visit * Reason Onset Date Comments Triage 05/17/2023 [facility] triage Encounter Details Date Type Department Care Team (Latest Contact Info) Description 05/17/2023 Clinical Communication Department of Obstetrics and Gynecology in [place], [place] [address] [place] [address] Prescheduling, Provider Triage ([facility] triage) Social History Tobacco Use Types Packs/Day Years Used Date Smoking Tobacco: Never Smokeless Tobacco: Never Alcohol Use Standard Drinks/Week Comments Yes 7 (1 standard drink = 0.6 oz pur e alcohol) occas [facility] Utilities Answer Date Recorded In the past 12 months has [facility] [employer], gas, oil, or water [email or web address] threatened to shut off services in your [...] How often do you attend chur or advent services? Never 05/18/2022 Do you belong to any clubs o r organizations such as scientologist groups, unions, fraternal or athletic groups, or [...] Answer Date Recorded PHQ-2 Score 0 02/02/2023 [facility] - Occupational [...] your living situation today? I have a [facility] place to live 05/31/2023 Education Answer Date Recorded What is the highest level of school you have completed or the highest degree you have received? 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, [employer], [employer]) 06/30/2020 Estimated Date of Delivery Comme nts Yes 08/29/2023 Based on Ultraso und Sex and Gender Information Value Date Recorded Sex Assigned at Female 04/29/2017 4:15 PM DEPOSITION REPORTER Gender Identity Female 04/29/2017 4:15 PM DEPOSITION REPORTER Sexual Orientation Straight 04/29/2017 4: 15 PM DEPOSITION REPORTER documented as of this encounter Plan of Treatment Not on file documented as of this encounter Visit Diagnoses Not on filedocumented in this encounter Additional Health Concerns Assessment Noted Time PHQ-9 Depression Total Score: 1 02/03/20 23 2:41 PM DEPOSITION REPORTER documented as of this encounter Care Teams Police Liaison Officer Relationship Specialty Start Date End Date Enrique Walters [place] [id number] PCP - General Family Medicine 04/29/17 documented as of this encounter
--- NOTE | 2023-09-15 09:36 | P.LACCB_ITS ---
Consult Note - Mom Date of Visit Date of visit: 09/15/23 procurement consultant: Britany Bell Visit Code: Visit (Met with Alba, her and baby for consultation.) Patient's Information Phone number: [phone] : 5 Para: 2 Allergies No Known Drug Allergies Allergy (Verified 08/31/23 09:27) Work Plans: Return to work at the end of Oct for 9 days and then off until Mar 2024. Delivery Information Delivery type: Repeat Section Weeks Gestation: 37+4 Gestational Age: AGA Weight: 3.232 kg Discharge Weight: 2.835 kg Baby's Information Medications: Vit D Baby's Age at Visit: 1 mo 4d Baby's Provider or Clinic: [facility] in [place], last visit 09/10/23 - weight was 7# 6oz Jaundice: No Reason for Consult Reason for Consult: Met with Alba, her , and baby re: slow weight gain, be sure latch is good, how to increase supply. Baby was born at 37+4 weeks, transferred from [facility] to NICU at [facility] in [place] for respiratory distress. Was inpatient for 5 days. Has continued to gain weight along the 11th percentile per parents report. Past Experience Past Experience: Yes (x20 mos with first daughter) Current Frequency of Day Feedings: every 2-2.5 hours Frequency of Night Feedings: every 3 hours Both Breasts: Yes (prefers right breast over left) Suck: strong Latch: slightly shallow Length of Time: Right side-always 15-20 min, left side 5-15 (less milk) Goals: at least 1 year Pumping Pumping: Yes Quantity Pumped: 1/2-1 oz if just nursed Supplementing EMB Supplement: No Formula Supplement: No Baby Elimination Number of Wet Diapers a Day: 6 or more Number of BM a Day: 6 or more Breast/Nipple Condition Engorgement: No Maternal Nipple Condition - Left: Common Nipple Maternal Nipple Condition - Right: Common Nipple Sore Nipples: No Onsite Post-Feed weight: 3.552 kg Pre-Nursing Left Nipple: Within Normal Limits Pre-Nursing Right Nipple: Within Normal Limits Post-Nursing Left Nipple: Within Normal Limits Post-Nursing Right Nipple: Within Normal Limits Assessments/Interventions Assessments/Interventions: Discussed getting lips flanged more for wider, deeper latch which will help with milk transfer. Also discussed asymmetric latch to get baby latched with flanged lips initially. Keep baby in ear/shoulder/hip alignment and snug to the breast. Always start on opposite side, even if she only takes left breast for 5-10 minutes, still needs the stimulation for milk production. Can do a left, then right, then end on left again to take advantage of additional let downs for milk intake. Discussed pumping 1-2 times a day to help increase supply on left side. Not currently doing bottles; discussed adding into routine within next 1-2 weeks to prepare for needing to take a bottle in October. All questions answered. Parents to call if additional questions/concerns arise. Meds Home Medications and Allergies Home Medications ?Medication ?Instructions ?Recorded ?Confirmed ?Type docosahexaenoic acid 200 mg 200 mg PO DAILY 05/11/23 08/31/23 History capsule ( DHA) vits 75-iron 28 mg-folic 1 pkg PO DAILY 05/11/23 08/31/23 History acid 800 mcg-omega-3 oral combo pack (One A Day Women's DHA) Allergies Allergy/AdvReac Type Severity Reaction Status Date / Time No Known Drug Allergies Allergy Verified 08/31/23 09:27
== END 2023-09-15 08:33 | disposition home or self-care (01) ==
LOC: OB LAC 08:33
PROVIDERS: PCP Family Medicine; Visit Provider Obstetrics & Gynecology
DX: Z39.1 Encounter for care and examination of lactating mother (principal)
CPT/HCPCS: G0463